=== PATIENT | male | born 1990 | race Caucasian/White ===

== ENCOUNTER 2021-09-20 21:25 | Emergency (ER) | payer OTHER, SELFPAY ==
[2021-09-20 21:30] VITALS: BP 145/88; PULSE 80; RESP 16; TEMP 36.6; O2SAT 100
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
[2021-09-20 22:22] VITALS: RESP 20
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
[2021-09-20 22:40] VITALS: BP 126/73; PULSE 77; RESP 20; O2SAT 97
== END 2021-09-20 22:41 | disposition home or self-care (01) ==
PROVIDERS: Emergency Provider Nurse Practitioner Family
DX: S69.81XA Other specified injuries of right wrist, hand and finger(s), initial encounter (principal); W20.8XXA Other cause of strike by thrown, projected or falling object, initial encounter
CPT/HCPCS: 99283; 73130; 99282

== ENCOUNTER 2021-11-28 14:42 | Outpatient (CLI) | payer OTHER, SELFPAY ==
[2021-11-28 13:43] LABS: Abs Immature Grans 0.01 10^3/uL (0.0-0.06); Absolute Basophil Count 0.03 10^3/uL (0.0-0.2); Absolute Eosinophil Count 0.03 10^3/uL (0.0-0.7); Absolute Lymphocyte Count 2.09 10^3/uL (1.2-3.4); Absolute Monocyte Count 0.59 10^3/uL (0.1-0.8); Absolute Neutrophil Count 3.54 10^3/uL (1.2-6.7); Basophils % 0.5; Eosinophils % 0.5; HCT 43.1 % (40.0-50.0); HGB 14.9 g/dL (13.5-17.5); Immature Grans % 0.2; Lymphocytes % 33.2; MCH 29.1 pg (27.0-33.0); MCHC 34.6 % (32.0-36.0); MCV 84 fL (80-95); MPV 10.7 fL (8.0-11.0); Monocytes % 9.4; Neutrophils % 56.2; Platelet Count 248 10^3/uL (130-400); RBC 5.12 10^6/uL (4.36-5.78); RDW 11.9 % (11.8-14.1); WBC 6.29 10^3/uL (4.4-10.8)
[2021-11-28 14:06] LABS: ALT 40 U/L (16-63); AST 16 U/L (15-37); Albumin 4.2 g/dL (3.4-5.0); Alkaline Phosphatase 80 U/L (46-116); Anion Gap 10.9 mmol/L (3-11); BUN 12 mg/dL (7-18); Bilirubin, Total 0.4 mg/dL (0.2-1.0); CO2 25.1 mmol/L (21.0-32.0); CREATININE 1.1 mg/dL (0.70-1.30); Calcium 8.9 mg/dL (8.5-10.1); Chloride 106 mmol/L (98-107); Glucose 119 mg/dL (74-106); Potassium 3.6 mmol/L (3.5-5.1); Sodium 142 mmol/L (136-145); Total Protein 7.8 g/dL (6.4-8.2); Troponin I < 50 ng/L (<or=60)
== END 2021-11-28 14:43 | disposition home or self-care (01) ==
LOC: LBO 14:48
PROVIDERS: Visit Provider Nurse Practitioner Family
DX: F41.9 Anxiety disorder, unspecified (principal); E07.89 Other specified disorders of thyroid
CPT/HCPCS: 36415; 80053; 84443; 84484; 85025

== ENCOUNTER → 2021-11-28 16:18 | Outpatient (CLI) | payer OTHER, SELFPAY ==
--- NOTE | 2021-11-28 13:50 | DI.RAD_ITS ---
Exam(s) XR CHEST 2V PA LATERAL EXAM: XR CHEST 2V PA LATERAL CLINICAL HISTORY: R07.89, Chest Pain - F41.9, Anxiety TECHNIQUE: 2D digital imaging was performed. COMPARISON: No exams were available for comparison FINDINGS: MEDIASTINUM: Normal. HEART: Normal. PULMONARY VASCULATURE: Normal. LUNGS: Clear. PLEURAL SPACE: No pleural effusion or pneumothorax. BONE:Unremarkable for age. IMPRESSION: No acute abnormality. DATA REPOSITORY: RADIATION DOSE DELIVERED:
== END ==
PROVIDERS: Visit Provider Nurse Practitioner Family
DX: R07.89 Other chest pain (principal); F41.8 Other specified anxiety disorders
CPT/HCPCS: 71046

== ENCOUNTER 2023-03-05 17:23 | Emergency (ER) | payer OTHER, SELFPAY ==
[2023-03-05 17:38] VITALS: BP 132/91; PULSE 94; RESP 16; TEMP 37
--- NOTE | 2023-03-05 18:15 | DI.RAD_ITS ---
Exam(s) XR FACIAL BONES COMPLETE EXAM: XR FACIAL BONES COMPLETE CLINICAL HISTORY: fall, right temporal and upper mandible TTP. TECHNIQUE: 2D digital imaging was performed. Four images were obtained. COMPARISON: No exams were available for comparison FINDINGS: BONES: No evidence of fracture. The sinuses are well pneumatized. No fluid levels are seen. SOFT TISSUES: Unremarkable. No radiopaque foreign bodies in the soft tissues. IMPRESSION: No evidence of a facial bone fracture. DATA REPOSITORY: RADIATION DOSE DELIVERED:
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
== END 2023-03-05 19:14 | disposition home or self-care (01) ==
PROVIDERS: Emergency Provider Student in an Organized Health Care Education/Training Program
DX: S09.93XA Unspecified injury of face, initial encounter (principal); V86.95XA Unspecified occupant of 3- or 4- wheeled all-terrain vehicle (ATV) injured in nontraffic accident, initial encounter
CPT/HCPCS: 99283; 70150

== ENCOUNTER → 2023-08-25 01:28 | Outpatient (CLI) | payer OTHER, SELFPAY ==
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
== END ==
DX: S22.080A Wedge compression fracture of T11-T12 vertebra, initial encounter for closed fracture (principal); X58.XXXA Exposure to other specified factors, initial encounter
CPT/HCPCS: 72072

== ENCOUNTER 2024-07-27 14:39 | Emergency (ER) | payer OTHER, SELFPAY ==
[2024-07-27 14:42] VITALS: BP 142/91; PULSE 92; RESP 16; TEMP 36.7; O2SAT 96
--- NOTE | 2024-07-27 14:45 | DI.CT_ITS ---
Exam(s) CT ORBITS WO EXAM: CT ORBITS WO CLINICAL HISTORY: ?foreign body superior left orbit. TECHNIQUE: Imaging Protocol: Axial computed tomography images with coronal and sagittal reformatted images were created and reviewed CONTRAST MATERIAL: Noncontrast COMPARISON: CR XR FACIAL BONES COMPLETE from 03/05/2023 FINDINGS: Globes: The anterior and posterior chambers are intact. Optic Nerves: Normal. Extraocular muscles: Normal. Retrobulbar fat: Normal. Orbital griffith: No definite fracture is noted. Superior ophthalmic veins: Normal. Sinuses: Mucous retention cysts are noted in the inferior maxillary sinuses. Soft Tissues: 2 millimeter radiodense foreign body is noted at the anterolateral left orbital soft ti ssues in, adjacent to the superior orbital rim no additional foreign bodies. No abnormal gas collect ion.. IMPRESSION: 2 millimeter radiodense foreign body is noted adjacent to the superolateral left orbital rim. RADIATION DOSE DELIVERED: Total DLP DATA REPOSITORY: All CT scans at this facility are submitted to the National Radiology Data Registry (NRDR) Dose Index Registry (DIR) with the [employer] (A[employer]). RADIATION OPTIMIZATION: All CT scans at this facility use at least one of these dose optimization te chniques: automated exposure control; mA and/or kV adjustment per patient size (includes targeted exa ms where dose is matched to clinical indication); or iterative reconstruction.
--- NOTE | 2024-07-27 14:56 | W.ED.GENAD ---
Discharge Plan Disposition Patient Disposition: Home Condition: Stable Discharge Details Clinical Impression: Retained foreign body Primary Care Provider: Lakeshia Easley ED Provider: Mahendra Florence Home Meds and New Rx's Prescriptions: New amoxicillin-pot clavulanate 875-125 mg tablet 1 tab PO BID Qty: 14 0RF Continued fluoxetine 60 mg Tablet 60 mg PO DAILY Discharge Instructions Additional Instructions: You do have a small foreign body in the soft tissues of the skin. Your eye itself appears intact. I discussed her case with the fundraising sale representative at [facility] and is getting placed on the follow-up list so you should receive a call from their office. If you develop any changes in your vision or severe eye pain return to the emergency department for reevaluation [facility] is open and same day from 10 AM to 3 PM tomorrow. HPI General Mode of arrival: ambulatory. Date/Time Provider Initiated Documentation: 07/27/24 14:47. Limitations to Documentation: no limitations. Information obtained by: patient. History of Present Illness 34 year old M presents to the emergency department with the chief complaint of ?foreign body superior to left eye, described as moderate, Patient started experiencing this week(s) (2) and it has been constant. No relieving factors improve symptom(s), No exacerbating factors reported . Patient notes no other symptoms.. Patient did receive the following treatments prior to arrival, none Related Data Home Medications ?Medication ?Instructions ?Recorded ?Confirmed fluoxetine 60 mg tablet 60 mg PO DAILY 03/05/23 07/27/24 amoxicillin 875 mg-potassium 1 tab PO BID #14 tabs 07/27/24 clavulanate 125 mg tablet Previous Rx's ?Medication ?Instructions ?Recorded amoxicillin 875 mg-potassium 1 tab PO BID #14 tabs 07/27/24 clavulanate 125 mg tablet Allergies Allergy/AdvReac Type Severity Reaction Status Date / Time No Known Allergies Allergy Unverified 07/27/24 14:44 General Stated Complaint: GenMedical BILL: 4 Review of Systems All systems reviewed & are unremarkable except as noted in HPI and below Constitutional Constitutional: Denies chills and Denies fever(s) Eyes Eyes: Denies blurry vision Cardiovascular Cardiovascular: Denies chest pain and Denies dyspnea Respiratory Respiratory: Denies cough and Denies dyspnea Gastrointestinal Gastrointestinal: Denies abdominal pain, Denies nausea and Denies vomiting Integumentary/Breasts Skin/Breast: Denies rash Exam Const General: no acute distress Orientation: alert HENAR Head: normal to inspection Ears: external ears normal General nose exam: external nose normal Mouth: moist mucous membranes Eyes General: appearance normal, both eyes and all related structures Alignment and Position: alignment normal Eyelids: eyelids normal Conjunctivae: conjunctivae normal Sclera: sclerae normal Cornea: corneas normal Pupils: PERRL Neck Neck: normal visual inspection Resp Effort & Inspection: normal respiratory effort and able to speak in complete sentences Cardio Rate: regular rate Skin General skin exam: no rashes or lesions noted Neuro General: patient alert and patient oriented x3 Extrem General: normal to inspection Psych Mental Status: mental status grossly normal Course Vital Signs Vital signs: Vital Signs Temperature 36.7 C 07/27/24 14:42 Pulse 92 H 07/27/24 14:42 Respiratory Rate 16 07/27/24 14:42 Blood Pressure 142/91 H 07/27/24 14:42 Pulse Oximetry 96 07/27/24 14:42 Temperature 36.7 C 07/27/24 14:42 Temperature Source Oral 07/27/24 14:42 Pulse 92 H 07/27/24 14:42 Respiratory Rate 16 07/27/24 14:42 Blood Pressure 142/91 H 07/27/24 14:42 Pulse Oximetry 96 07/27/24 14:42 Pain Level 0 07/27/24 14:42 Medical Decision Making 34-year-old male who denies any chronic medical problems comes in with concerns for a possible retained left foreign body superior to the left eye. He says 2 weeks ago he was grinding metal and a piece of metal hit his skin superior to the left orbit. He did not lose consciousness and did not seek medical attention at this time. He says he had a scab that has healed but he still feels like there is a hard piece of material underneath the area. He has no pain in the eye itself or changes in vision. He is well-appearing speaking in full sentences. He has no conjunctival injection, pupils are equal and reactive to light with full range of motion no pain in the eye. Just inferior to the left eyebrow the middle portion and superior to the upper eyelid there is a 1 cm hard piece of material that I suspect could be scar tissue or retained foreign body there is no overlying skin changes. Will obtain CT imaging to evaluate for possible retained foreign body. Vision is 20/20 and last had tetanus vaccine in November 2021 so is up-to-date Patient does have a 2 mm foreign body to superior to the left globe. There is no signs of infection and globe seems intact, given the proximity to the eye will consult ophthalmology determine if any acute or follow-up treatment is needed for this. Spoke with Dr. Oconnell fundraising sale representative at [facility] who reviewed the images and case and he will have the patient follow-up with his oculoplastics colleague in follow-up. Patient stable understands the importance of follow-up. Will also cover him with a short course of antibiotics. Differential Diagnosis Differential Diagnosis: Foreign body, scar tissue Imaging Data Radiologic Study: Attestation: I personally reviewed and interpreted this imaging study as follows: Imaging: CT Scan Radiologist's impression: FINDINGS: Globes: The anterior and posterior chambers are intact. Optic Nerves: Normal. Extraocular muscles: Normal. Retrobulbar fat: Normal. Orbital griffith: No definite fracture is noted. Superior ophthalmic veins: Normal. Sinuses: Mucous retention cysts are noted in the inferior maxillary sinuses. Soft Tissues: 2 millimeter radiodense foreign body is noted at the anterolateral left orbital soft tissues in, adjacent to the superior orbital rim no additional foreign bodies. No abnormal gas collection.. IMPRESSION: 2 millimeter radiodense foreign body is noted adjacent to the superolateral left orbital rim. Quality:SDOH Health Related Social Needs: No Data to Display PFSH All Active Problems (Updated 07/27/24 @ 17:00 by Mahendra Florence MD) Retained foreign body (Acute) Social History Smoking/Tobacco Use Status: Current every day Tobacco Type: smokeless tobacco Smoking risk assessment performed?: Yes Alcohol Intake: current Alcohol Intake frequency: a few times a week Drug use: Never Substance use type: does not use Housing: house Do you feel safe at home: Yes Do you feel safe in your relationship?: Yes PAWSS Have you Been Recently Intoxicated or Drunk Within the Last 30 days?: No Have you Ever Experienced Previous Episodes of Alcohol Withdrawal?: No Have you ever Experienced Withdrawal Seizures?: No Have you ever Experienced Delirium Tremens(DT)s?: No Have you ever undergone Alcohol Rehabilitation Treatment (i.e, inpt ot outpatient treatment programs)?: No Have you ever Experienced Blackouts?: No Have you ever Combined Alcohol with other Downers within the last 90 days?: No Have you ever Combined Alcohol with any other Substance of Abuse during the last 90 days?: No Result: 0
--- OUTSIDE RECORDS SUMMARY | 2024-07-27 15:05 | XMS_ITS | Encounter Summary ---
Author Organization [facility] Address [address] [place] [address] Care Team Providers Care Electrical Prospecting Supervisor Name Role Phone Lakeshia Easley DNP Primary Care Provider [phone] Reason for Referral * Consult (Routine/Next Available) - Authorization Not Required Specialty Diagnoses / Procedures Referred By Alfred hawthorne Referred To Contact Diagnoses BMI 33.0-33.9,adult Elevated blood pressure reading without diagnosis of hypertension Lakeshia Easley DNP [address] [place] [phone] Phone: tel: fax: [address] , [facility] [address] [place] [address] Phone: tel: fax: Referral ID Status Reason Start Date Expiration Date Visits Requested Visits Authorized [id number] Authorization Not Required Specialty Services Required 4 1 1 Question Answer Nutrition/healthcare educator/Education: Nutrition Reason for Visit * Reason Comments Anxiety Encounter Details Date Type Department Care Team ([facility] st Contact Info) Description 04/22/2024 12:00 EDT Office Visit [facility] [address] , [facility] [address] [place] [address] Lakeshia Easley DNP [address] [phone] Anxiety (Primary Dx); BMI 33.0-33.9,adult; Snoring; Elevated blood pressure reading without diagnosis of hypertension Social History Tobacco Use Types Packs/Day Years Used Date Smoking Tobacco: Former Cigarettes 0.5 2 2 018 - 2019 Smokeless Tobacco: Current Chew Tobacco Cessation:Ready to Q uit: No; Counseling Given: Yes Alcohol Use Standard Drinks/Week Comments Yes 0 (1 standard drink = 0.6 oz pur e alcohol) Overall Financial Resource Strain (CARDIA) Answe r Date Recorded How hard is it for you to pa y for the very basics like food, housing, medical care, and heating? Not hard at all 02/22/2023 PHQ-2 Answer Date Recorded PHQ-2 SUBTOTAL 0 04/22/2024 Hunger Vital Sign Answer Date Recorded Within the past 12 months, y ou worried that your food would run out before you got the money to buy more. Never true 02/23/20 23 Within the past 12 months, t he food you bought just didn't last and you didn't have money to get more. Never true 02/22/2023 PRAPARE - Transportation Answer Date Re corded In the past 12 months, has l ack of transportation kept you from medical appointments or from getting medications? No 01/26 In the past 12 months, has l ack of transportation kept you from meetings, work, or from getting things needed for daily living? No 02/22/2023 Housing Stability Vital Sign Answer Elvin e Recorded In the last 12 months, was t here a time when you were not able to pay the mortgage or rent on time? No 02/22/2023 In the last 12 months, how many places have you lived? 1 02/22/2023 In the last 12 months, was t here a time when you did not have a steady place to sleep or slept in a halfway (including now)? No 02/22/2023 Interpersonal Safety Answer Date Record ed How often does anyone, russell barahona family, hit, punch or physically hurt you? Never 02/22/2023 How often does anyone, russell barahona family, insult, scream, curse or threaten to hurt you? Never 02/22/2023 Sex and Gender Information Value Date Recorded Sex Assigned at Not on file Legal Sex Male 18:11 EST Gender Identity Male 11/27/2021 11:10 EDT Sexual Orientation Not on file documented as of this encounter Last Filed Vital Signs Vital Sign Reading Time Taken Comments Blood Pressure 131/91 04/22/2024 1138 EDT Pulse 74 04/22/2024 1138 EDT Temperature 36.7 ??C (98 ??F) 04/22/2024 1138 EDT Respiratory Rate 15 04/22/2024 1138 EDT Oxygen Saturation 98% 04/22/2024 1138 EDT Inhaled Oxygen Concentration - - Weight 110.1 kg (242 lb 12.8 oz) 04/22/2024 1138 EDT Height 180.3 cm (5' 11) 04/22/2024 1138 EDT Body Mass Index 33.86 04/22/2024 1138 EDT documented in this encounter Progress Notes * Lakeshia Easley, DNP - 04/22/2024 1200 EDT Primary Care Visit Assessment & Plan Diagnoses and all orders for this visit: Anxiety Chronic, stable. Well-controlled on current medication. -Continue Fluoxetine 60 mg daily. BMI 33.0-33.9,adult Expressed interest in weight loss and diet modification. Discussed various diet options and the importance of sustainable changes. -Schedule consult with receptionist for dietary advice. - AMB CONS/FOLLOW UP CENTRAL OFFICE INSPECTOR, HIGH VOLTAGE ELECTRICIAN AND NUTRITION Snoring Recommended proceeding with sleep study for suspected sleep apnea but patient declines. Discussed risks of untreated sleep apnea and patient expressed understanding. Elevated blood pressure reading without diagnosis of hypertension Elevated blood pressure noted during visit. Discussed potential lifestyle factors contributing to hypertension. -Purchase home blood pressure cuff and check blood pressure daily for one week. Appropriate technique reviewed. -Report readings via MyChart. -Consider medication if readings persistently above 120/80. - AMB CONS/FOLLOW UP CENTRAL OFFICE INSPECTOR, HIGH VOLTAGE ELECTRICIAN AND NUTRITION Patient education was direct. Barriers were assessed and addressed as needed. I spent a total of 25 minutes on the date of this encounter meeting with the patient and reviewing documentation/coordinating care as described in the above note. Unless otherwise noted, no procedures were performed at the time of the visit. Nayan Garcias is a 33 y.o. male presenting with Anxiety History of Present Illness The patient, with a history of anxiety managed with fluoxetine, presents for a follow-up. He reports that moods have been good with the medication. His only concern is that he continues to experience fatigue at the end of the day after work, whichmakes it difficult to find motivation to complete tasks at home. Despite this, he denies daytime sleepiness. He has tried taking his fluoxetine at night without improvement in his fatigue. He has also made dietary changes, switching from a vegetarian diet to one with more protein, which has improved his energy levels. He denies any other concerns or changes in mood. The patient is reluctant to undergo a sleep study for potential sleep apnea, despite acknowledging that he snores. He reports feeling better in the mornings and waking up earlier, around 4 or 5 AM. Wakes up feeling rested. He also expresses interest in weight loss and has questions about diet recommendations. He has tried intermittent fasting in the past with some success. Data reviewed this visit: problem list/past medical history, current medications, allergies, and recent labs Objective BP (!) 131/91 (BP Cuff Location: Right arm, BP Patient Position: Sitting, BP Cuff Sizes: Adult, regular) Pulse 74 Temp 36.7 ??C (98 ??F) (Oral) Resp 15 Ht 180.3 cm (71) Wt (!) 110.1 kg (242 lb 12.8 oz) SpO2 98% BMI 33.86 kg/m?? Physical Exam Physical Exam Constitutional: Appearance: Normal appearance. Cardiovascular: Rate and Rhythm: Normal rate and regular rhythm. Pulses: Normal pulses. Heart sounds: Normal heart sounds. Pulmonary: Effort: Pulmonary effort is normal. Breath sounds: Normal breath sounds. Neurological: General: No focal deficit present. Mental Status: He is alert and oriented to person, place, and time. Psychiatric: Mood and Affect: Mood normal. Behavior: Behavior normal. Thought Content: Thought content normal. Judgment: Judgment normal. I discussed with Dieter Miller the use of this audio recording tool to create a clinical note. Iexplained the benefits of the technology, such as time savings and a better patient experience. I explained that the recording will be confidential and converted into a written note which I will review and edit as needed before it is saved in the medical record. The patient expressed an understanding of the use of this technology for clinical documentation and agreed to allow its use for this encounter. documented in this encounter Plan of Treatment Scheduled Referrals Name Type Priority Associated Diagnoses Order Schedule AMB CONS/FOLLOW UP CENTRAL OFFICE INSPECTOR, HIGH VOLTAGE ELECTRICIAN AND NUTRITION Outpatient Referral Routine/Next Available BMI 33.0-33.9,Adult Elevated Blood Pressure Reading without Diagnosis of Hypertension Expected: 04/29/2024 (Approximate), Expires: 04/22/2025 documented as of this encounter Visit Diagnoses Diagnosis Anxiety- Primary Anxiety state, unspecified BMI 33.0-33.9,adult Body Mass Index 33.0-33.9, adult Snoring Other dyspnea and respiratory abnormality Elevated blood pressure reading without diagnosis of hypertension documented in this encounter Care Teams Electrical Prospecting Supervisor Relationship Specialty Start Date End Date Lakeshia Easley DNP [address] [place] [phone] PCP - General Family Medicine - Primary Care 12/05/21 documented as of this encounter
--- OUTSIDE RECORDS SUMMARY | 2024-07-27 15:05 | XMS_ITS | Referral Summary ---
Author Organization [facility] Address [address] [place] [address] Care Team Providers Care Food Safety Auditor Name Role Phone Lakeshia Easley Deb DNP Primary Care Provider [phone] Unavailable [phone] Allergies No known active allergies Medications FLUoxetine 60 mg tablet TAKE ONE TABLET BY MOUTH EVERY DAY 90 Tablet 3 04/03/2024 Active Active Problems Patient Care Coordination No te Formatting of this note migh t be different from the original. [facility] the following information with Georgina Wan who has the following relationship to the patient: Spouse/Partner: Scheduling/Appt/Billing/Payment Information (does not include clinical information unless specifically indicated with separate option) Medical Information including symptoms, diagnosis, medications, test results and treatment plan (does not include Mental Health unless specifically indicated with separate option) Mental Health (Behavioral,Psychiatric,Chemical Dependency) health information, including my symptoms, diagnosis, medications and treatment plan Permission remains in effect until the patient elects to revoke it. Problem Noted Date Diagnosed Date Compression fracture of T11 vertebra ([facility]) 0 11/05/2023 Overview (11/05/2023): 07/2023-following injury, mild compression fracture of T11, resolved without sequela, confirmed by x-ray done at [facility] BMI 32.0-32.9,adult 03/05/2023 Former smoker 03/05/2023 Anxiety 01/22/2022 Dependence on nicotine from chewing tobacco 11/25 Immunizations Name Administration Dates Next Due Covid-19 mRNA Vaccine (PFIZE R COVID-19) PF 0.3 ml IM (12 yrs+) 08/01/2021,12/04/2020,11/13/2020 Hepatitis B Vaccine Ped/Adol escent 3-dose IM 08/08/2000,04/15/2000,02/08/2000 Hib 08/10/1993, 3,1992,1991 Historical DTaP Vaccine, Unspecified ,12/05/1993,1992,1992,1992 Historical Influenza Vaccine , Unspecified 05/10/2021,05/14/2018 Influenza Vaccine MDCK Quad (FLUCELVAX) MDV w/preserv 0.5 ml IM (4 Yrs+) 05/10/2021 Influenza Vaccine Quad PF 0. 5 ml IM (6 mos+) 06/18/2022,05/14/2018 MMR Vaccine SQ 08/12/1997,08/10/1996 Pneumococcal Conjugate Vacci ne 20-Valent (PCV20) (PREVNAR-20) 0.5 mL IM (6 wks+) 03/05/2023 PolioVirus Vaccine OPV Oral 08/12/1997,0 12/05/1993,1992,1991 Tdap Vaccine =>7YO IM 12/05/2021,10/25/2003 Social History Tobacco Use Types Packs/Day Years Used Date Smoking Tobacco: Former Cigarettes 0.5 2 2 - 2019 Smokeless Tobacco: Current Chew Tobacco [...] place to sleep or slept in a penitentiary (including now)? No 02/22/2023 Interpersonal Safety Answer [...] 11:10 EDT Sexual Orientation Not on file Last Filed Vital Signs Vital Sign Reading [...] Body Mass Index 33.86 04/22/2024 1138 EDT Plan of Treatment Not on file Procedures Procedure Name Priority Date/Time Associated Diagnosis Comments HEPATITIS C AB W REFLEX TO HCV RNA BY PCR Routine 03/05/2023 11:15 EDT Encounter for preventive care HIV 1/2 ANTIGEN AND ANTIBODY, 4TH GENERATION Routine 03/05/2023 11:15 EDT Encounter for preventive care from Last 3 Months or Most Recently Relevant to Health Maintenance Results * HEPATITIS C AB W REFLEX TO HCV RNA BY PCR (03/05/2023 11:15 EDT) Hep C Antibody Negative Negative 03/05/2023 16:48 EDT [facility] Blood VENOUS BLOOD / Unknown Venipuncture / Unknown 03/05/2023 11:15 EDT 03/05/2023 11:15 EDT Lakeshia Easley DNP CHEMISTRY & BLOOD GAS ORDERA BLES Final Result Performing Organization Address [facility]/ZIP Co de Phone Number [facility] [address] [place] [address] * HIV 1/2 ANTIGEN AND ANTIBODY, 4TH GENERATION (03/05/2023 11:15 EDT) HIV 1 and 2 Antibody/p24 Antigen, 4th Generation Negative Negative 03/05/2023 16:39 EDT [facility] Comment:If acute HIV-1 infec tion is suspected in a high risk patient, submit plasma specimen for HIV-1 RNA quantitation test. Blood VENOUS BLOOD / Unknown Venipuncture / Unknown 03/05/2023 11:15 EDT 03/05/2023 11:15 EDT Lakeshia Easley DNP IMMUNOLOGY AND SEROLOGY ORDE RABLES Final Result Performing Organization Address City/[facility]/ZIP Co de Phone Number [facility] [address] [place] [address] from Last 3 Months or Most Recently Relevant to Health Maintenance Insurance [employer] Care Teams Food Safety Auditor Relationship Specialty Start Date End Date Lakeshia Easley DNP [address] [place] [phone] PCP - General Family Medicine - Primary Care 12/05/[address] [place] [id number] Tele Grout Sewer Line Repairer (CDE) Diabetes Education 05/03/24
--- OUTSIDE RECORDS SUMMARY | 2024-07-27 15:05 | XMS_ITS | Clinical Summary ---
Author Organization [facility] Address [address] [place] [address] Care Team Providers Care Heel Burnisher Name Role Phone Lakeshia Easley DNP Primary Care Provider + [phone] Unavailable [phone] Allergies No known active allergies Medications FLUoxetine 60 mg tablet TAKE ONE TABLET BY MOUTH EVERY DAY 90 Tablet 3 04/03/2024 Active Active Problems Patient Care Coordination No te Formatting of this note migh t be different from the original. [facility] the following information with [...] Diagnosed Date Compression fracture of T11 vertebra ([facility]) 0 11/05/2023 Overview (11/05/2023): 07/2023-following injury, mild compression fracture of T11, resolved without sequela, confirmed [facility] at [facility] BMI 32.0-32.9,adult 03/05/2023 Former smoker 03/05/2023 Anxiety [...] 08/12/1997,0 12/05/1993,1992,1991 Tdap Vaccine =>7YO IM 12/05/2021,10/25/2003 Family History Medical History Relation Comments *Other(comment) Maternal Grandfather Parkinson's *Other(comment) Maternal Uncle Parkinson's Diabetes Paternal Grandfather Relation Status Comments Maternal Grandfather Maternal Uncle Paternal Grandfather Social History Tobacco Use Types Packs/Day Years [...] place to sleep or slept in a senior living (including now)? No 02/22/2023 Interpersonal Safety Answer Date Record ed How often does anyone, incl[place] family, hit, punch or physically hurt you? Never 02/22/2023 How often does anyone, incl[place] family, insult, scream, curse or threaten to hurt you? Never 02/22/2023 Sex and Gender Information Value Date Recorded Sex Assigned at Not on file Legal Sex Male 18:11 EST Gender Identity Male 11/27/2021 11:10 EDT Sexual Orientation Not on file Obstetrics History Last Filed Vital Signs Vital Sign Reading [...] 33.86 04/22/2024 1138 EDT Plan of Treatment Health Maintenance Due Date Last Done Comments Advance Directive 2010 Social Determinants Of Health (SDOH) 02/23/2024 02/22/2023, 02/22/2023 Preventive Care Visit 03/05/2025 03/05/2023 Depression Screening 04/22/2025 04/22/2024, 03/05/20 Tetanus (Adult) Immunization 12/06/2031 12/05/2021, 10/25/2003 Hepatitis B Vaccine Completed 08/08/2000, 04/15/2000, 02/08/2000 COVID-19 Vaccine Discontinued 08/01/2021, 04/2021, 11/13/2020 Pertussis (Adult) Immunization Completed 12/05/2021, 10/25/2003 Influenza Immunization (Adult) Discontinued 06/18/2022, 05/10/2021, 05/10/2021, Additional history exists HIV Screening Completed 03/05/2023 Hepatitis C Screen Completed 03/05/2023 Pneumococcal Immunization Completed 03/05/2023 HPV Vaccines Aged Out No longer eligi ble based on patient's age to complete this topic Procedures Procedure Name Priority Date/Time Associated Diagnosis [...] C Antibody Negative Negative 03/05/2023 16:48 EDT [facility] Blood VENOUS BLOOD / Unknown Venipuncture / Unknown 03/05/2023 11:15 EDT 03/05/2023 11:15 EDT Lakeshia Easley DNP CHEMISTRY & BLOOD GAS ORDERA BLES Final Result [facility] [address] [place] [address] * HIV 1/2 ANTIGEN AND ANTIBODY, 4TH GENERATION (03/05/2023 11:15 EDT) HIV 1 and 2 Antibody/p24 Antigen, 4th Generation Negative Negative 03/05/2023 16:39 EDT [facility] Comment:If acute HIV-1 infec tion is suspected in a high risk patient, submit plasma specimen for HIV-1 RNA quantitation test. Blood VENOUS BLOOD / Unknown Venipuncture / Unknown 03/05/2023 11:15 EDT 03/05/2023 11:15 EDT Lakeshia Easley DNP IMMUNOLOGY AND SEROLOGY TISHA JACKSON Final Result [facility] [address] [place] [address] from Last 3 Months or Most Recently Relevant to Health Maintenance Insurance [facility] Care Teams Heel Burnisher Relationship Specialty Start Date End Date Lakeshia Easley DNP [address] [place] [phone] PCP - General Family Medicine - Primary Care 12/05/[address] [place] [phone] Shellfish Grower (CDE) Diabetes Education 05/03/24
--- OUTSIDE RECORDS SUMMARY | 2024-07-27 15:05 | XMS_ITS | Encounter Summary ---
Author Organization [facility] Address [address] [place] [address] Care Team Providers Care Wool Shearer Name Role Phone Lakeshia Easley DNP Primary Care Provider [phone] Reason for Visit * Reason Comments Medications Refill Encounter Details Date Type Department Care Team (Late st Contact Info) Description 03/31/2024 Refill [facility] Family Medicine [facility] [address] [facility], [address] [place] [address] Lakeshia Easley DNP [address] [facility] [address] [place] [phone] Medications Refill Social History Tobacco Use Types Packs/Day Years Used Date Smoking Tobacco: Former Cigarettes 0.5 2 2 018 - 2020 Smokeless Tobacco: Current Chew Alcohol Use Standard Drinks/Week Comments Yes 0 (1 standard drink = 0.6 oz pur e alcohol) Overall Financial Resource Strain (CARDIA) Mague gabriel Date Recorded How hard is it for you to pa y for the very basics like food, housing, medical care, and heating? Not hard at all 02/22/2023 PHQ-2 Answer Date Recorded PHQ-2 SUBTOTAL 0 02/22/2023 Hunger Vital Sign Answer Date Recorded Within [...] place to sleep or slept in a nursing home (including now)? No 02/22/2023 Interpersonal Safety Answer Date Record ed How often does anyone, incl[place] family, hit, punch or physically hurt you? Never 02/22/2023 How often does anyone, [place] family, insult, scream, curse or threaten to hurt you? Never 02/22/2023 Sex and Gender Information Value Date Recorded Sex Assigned at Not on file Legal Sex Male 18:11 EST Gender Identity Male 11/27/2021 11:10 EDT Sexual Orientation Not on file documented as of this encounter Ordered Prescriptions Prescription Sig Dispense Quantity Refills Last Filled Start Date End Date FLUoxetine 60 mg tablet TAKE ONE TABLET BY MOUTH EVERY DAY 90 Tablet 3 04/03/2024 documented in this encounter Miscellaneous Notes * Telephone Encounter - Alejandrina Slaughter RN - 04/03/2024 1017 EDT Rx(s) escribed to pharmacy. * Telephone Encounter - Girish Frazier - 04/02/2024 1626 EDT Scheduled for 04/22 * Telephone Encounter - Girish Frazier - 04/02/2024 1011 EDT LVMTCB to schedule appt. OK for same day per RG * Telephone Encounter - Alejandrina Slaughter RN - 04/02/2024 1004 EDT Pls schedule f/u mood, then. TY. * Telephone Encounter - Griish Frazier - 04/02/2024 0940 EDT RG does not have any [facility] spots before she leaves 05/28 * Telephone Encounter - Alejandrina Slaughter RN - 04/01/2024 1327 EDT Medication Refill Request Med: fluoxetine 60 mg, 1 tab QD [facility]: [facility] Last visit: 08/08/23 Next visit: none documented in this encounter Plan of Treatment Not on file documented as of this encounter Visit Diagnoses Not on filedocumented in this encounter Discontinued Medications Medication Sig Discontinue Reason Start Date End Da te FLUoxetine 60 mg tablet TAKE ONE TABLET BY MOUTH EVERY DAY 03/27/2023 04/03/2024 documented as of this encounter Care Teams Wool Shearer Relationship Specialty Start Date End Date Lakeshia Easley DNP [address] [place] [phone] PCP - General Family Medicine - Primary Care 12/05/21 documented as of this encounter
--- OUTSIDE RECORDS SUMMARY | 2024-07-27 15:06 | XMS_ITS | Encounter Summary ---
Author Organization [facility] Address [address] [place] [address] Care Team Providers Care Brick Veneer Maker Name Role Phone Lakeshia Easley DNP Primary Care Provider [phone] Reason for Visit * Reason Comments Anxiety Encounter Details Date Type Department Care Team (Late st Contact Info) Description 12/13/2021 11:00 EDT Telemedicine [facility] Family Medicine [address], [facility] [address] [place] [address] Lakeshia Easley DNP [address] [facility] [address] [place] [address] Anxiety (Primary Dx); Obsessional thoughts Social History Tobacco Use Types Packs/Day Years Used Date Smoking Tobacco: Former Cigarettes 0.5 4 Smokeless Tobacco: Current Chew Alcohol Use Standard Drinks/Week Comments Yes 0 (1 standard drink = 0.6 oz pur e alcohol) PHQ-2 Answer Date Recorded PHQ-2 SUBTOTAL 2 12/13/2021 Interpersonal Safety Answer Date Record ed Physically Hurt Never 02/27/2020 Verbally Threaten Not on file 02/27/2020 Sex and Gender Information Value Date Recorded Sex Assigned at Not on file Legal Sex Male 18:11 EST Gender Identity Male 11/27/2021 11:10 EDT Sexual Orientation Not on file documented as of this encounter Ordered Prescriptions Prescription Sig Dispense Quantity Refills Last Filled Start Date End Date FLUoxetine (PROZAC) 10 mg capsule Take 1 capsule by mouth daily. 30 capsule 3 12/13/2021 2 documented in this encounter Progress Notes * EasleyLakeshia, DNP - 12/13/2021 1100 EDT [facility] [place] Video Visit APSO Assessment & Plan: 1. Anxiety 2. Obsessional thoughts CRISTIAN-7: 13 PHQ-9: 10 ? Anxiety versus OCD. Counseled and discussed options for management. Referral to [facility] for counseling - discussed 6-8 week wait list and breif intervention model. Plan to start Fluoxetine 10 mg daily and reviewed side effects. Will f'up in 4-weeks and Raghav was encouraged to reach out sooner withany questions or concerns. - AMB CONS/FOLLOW UP TOBACCO CESSATION & BEHAVIORAL HEALTH; Future Other orders - FLUoxetine (PROZAC) 10 mg capsule; Take 1 capsule by mouth daily. Return in about 4 weeks (around 01/10/2022) for follow-up anxiety video OK . Today's visit was provided through telemedicine video conferencing: The location of the patient: [place] The location of the provider: Office Verbal consent: The concept of ???Telemedicine?? has been described to the patient.Patient has been informed of the anticipated benefits and possible risks. Patient understands the information provided regarding telemedicine, has had the opportunity to ask questions about this information, and all questions have been answered to patient???s satisfaction. Patient consents for the use of telemedicine in his/her medical care and authorizes the transmission of any relevant medical information to providers and their staff involved in patient???s medical or mental health care. Verbal consent obtained by myself or auxiliary staff: yes. Subjective: Chief Complaint(s): Anxiety HPII have reviewed current problem list and current medications. Raghav presents today to discuss anxiety. Lately I have been having some problems with anxiety. It had gone away for a while and now it's back Describes ruminative thoughts and worrying to the point that it is affecting his day-to-day function. This started about a year and a half ago when he went on vacation and couldn't remember if he had shut the burner off on the stove, kept thinking about it over and over throughout his whole vacation. He reports that when these thoughts occur, he cannot stop thinking about or worrying about them andhe goes down a rabbit hole of irrational thinking. Gives an example about mowing the lawn when it was dry and worrying about the lawn catching on fire. He tries to use distraction techniques but these are often ineffective. GF has also noticed these patterns and has told him that he has anxiety. He has certain days where he is not worried at all and feels fine but other times where he cannot stop these thoughts. He denies any thoughts of self-harm, SI or HI. Objective: Examination: There were no vitals taken for this visit. Physical Exam Constitutional: General: He is not in acute distress. Appearance: Normal appearance. He is not ill-appearing or diaphoretic. Pulmonary: Effort: Pulmonary effort is normal. Neurological: Mental Status: He is alert. Psychiatric: Attention and Perception: Attention normal. Mood and Affect: Mood is anxious. Speech: Speech normal. Behavior: Behavior normal. A total of 25 minutes was spent on this encounter on the day of this encounter. The following individuals and their role did participate in today's encounter visit: Provider: Lakeshia Easley DNP Patient documented in this encounter Plan of Treatment Not on file documented as of this encounter Visit Diagnoses Diagnosis Anxiety- Primary Anxiety state, unspecified Obsessional thoughts Obsessive-compulsive disorders documented in this encounter Care Teams Brick Veneer Maker Relationship Specialty Start Date End Date Lakeshia Easley DNP [address] [place] [phone] PCP - General Family Medicine - Primary Care 12/05/21 documented as of this encounter
--- OUTSIDE RECORDS SUMMARY | 2024-07-27 15:06 | XMS_ITS | Encounter Summary ---
Author Organization [facility] Address [address] [place] [address] Care Team Providers Care Irrigation Technician Name Role Phone Lakeshia Easley DNP Primary Care Provider [phone] Encounter Details Date Type Department Care Team ([place] [facility] st Contact Info) Description 02/18/2022 15:00 EDT Community Health Team [facility] [place] - [address] [address] [facility], [facility] Adult Social History Tobacco Use Types Packs/Day Years [...] on file documented as of this encounter Progress Notes * Rema Urena LADC - 02/18/2022 1500 EDT [facility] Progress Note Primary Care Provider: Lakeshia Easley Present Patient Verbal consent: The concept of ???Telemedicine?? has been described to the patient.? Patient has been informed of the anticipated benefits and possible risks.? Patient understands the information provided regardingtelemedicine, has had the opportunity to ask questions about this information, and all questions have been answered to patient's satisfaction. Patient consents for the use of telemedicine in his/her medical care and authorizes the transmission of any relevant medical information to providers and their staff involved in patient's medical or mental health care. This visit was conducted via telephone video. Subjective: Dieter is a 31-year old white male. He was referred for anxiety after experiencing panic attacks during the workday. Dieter said he has been feeling much better since starting fluoxetine. He said he is able to work without worrying that he might get sick. He recalled that his anxiety started when he was on a trip and couldn't remember if he'd turned off an appliance. Dieter said he feels he does not need counseling at this time. Pt said he would contact his PCP if anything changed and he wanted to reconnect w/ a counselor. Objective: Appearance: Appropriate Behavior: Appropriate Thought Process: Coherent Thought Content: Appropriate Risk: No suicidal, homicidal or violent ideations, No plan and No intent Speech: Normal Mood: Euthymic Affect: Normal Judgement: Good Insight: Appropriate Cognition: Normal Assessment: Pt demonstrates awareness and insight; seems thoughtful and reflective; open to feedback provided. Pt engaged in session. Treatment: Active listening, inventory of symptoms, psychoeducation r/t brief treatment. Plan: No additional sessions at this time. Pt may contact this com writer or his PCP if he wishes to re-engage. Duration of Session: 20 Minutes Follow up appointment: Visit date not found documented in this encounter Plan of Treatment Not on file documented as of this encounter Visit Diagnoses Not on filedocumented in this encounter Care Teams Irrigation Technician Relationship Specialty Start Date End Date Lakeshia Easley DNP [address] [place] [phone] PCP - General Family Medicine - Primary Care 12/05/21 documented as of this encounter
--- OUTSIDE RECORDS SUMMARY | 2024-07-27 15:06 | XMS_ITS | Encounter Summary ---
Author Organization [facility] Address [address] [place] [address] Care Team Providers Care Learning Support Assistant Name Role Phone Lakeshia Easley DNP Primary Care Provider [phone] Reason for Visit * Reason Comments Follow-up Encounter Details Date Type Department Care Team (Late st Contact Info) Description 06/18/2022 14:30 EST Office Visit [facility] Family Medicine [facility] [address] [facility], [address] [place] [address] Lakeshia Easley DNP [address] [facility] [address] [place] [address] Anxiety (Primary Dx); Snoring; Needs flu shot Social History Tobacco Use Types Packs/Day Years Used Date Smoking Tobacco: Former Cigarettes 0.5 4 Smokeless Tobacco: Current Chew Alcohol Use Standard Drinks/Week Comments Yes 0 (1 standard drink = 0.6 oz pur e alcohol) PHQ-2 Answer Date Recorded PHQ-2 SUBTOTAL 0 06/18/2022 Interpersonal Safety Answer Date Record ed Physically Hurt Never 02/27/2020 Verbally Threaten Not on file 02/27/2020 Sex and Gender Information Value Date Recorded Sex Assigned at Not on file Legal Sex Male 18:11 EST Gender Identity Male 11/27/2021 11:10 EDT Sexual Orientation Not on file documented as of this encounter Last Filed Vital Signs Vital Sign Reading Time Taken Comments Blood Pressure 118/68 06/18/2022 1423 EST Pulse 73 06/18/2022 1423 EST Temperature 36.8 ??C (98.3 ??F) 06/18/2022 1423 EST Respiratory Rate 14 06/18/2022 1423 EST Oxygen Saturation 97% 06/18/2022 1423 EST Inhaled Oxygen Concentration - - Weight 109 kg (240 lb 4.8 oz) 06/18/2022 1423 ES T Height 182.9 cm (6') 06/18/2022 1423 EST Body Mass Index 32.59 06/18/2022 1423 EST documented in this encounter Ordered Prescriptions Prescription Sig Dispense Quantity Refills Last Filled Start Date End Date FLUoxetine 60 mg tablet Take 1 Tablet by mouth daily. 90 Tablet 2 06/18/2022 03/27/2023 documented in this encounter Progress Notes * Lakeshia Easley, DNP - 06/18/2022 1430 EST [facility] [place] Primary Care APSO Assessment & Plan: 1. Anxiety Very well-controlled on current medication. CRISTIAN-7: 2 PHQ-9: 2 Continue Fluoxetine 60 mg daily. Follow-up for PEX. 2. Snoring Recommended sleep study to evaluate for sleep apnea, however, Raghav declines at this time. He agrees to reach out should he wish to proceed with this referral. 3. Needs flu shot - INFLUENZA VACCINE QUAD PF 0.5 ML IM (6 MOS+) Return in about 8 months (around 02/15/2023) for PEX, f'up mood . Subjective: Chief Complaint(s): Follow-up HPI I have reviewed current problem list and current medications. Raghav presents today to follow-up on anxiety. ?? At our last encounter, he was doing much better on Fluoxetine and wanted to try to increase the dose to 60 mg daily. ?? He reports that moods have been really good, overall. He has noticed times where he starts to feel anxious but it passes quickly versus in the past where he would spend hours or days ruminating over something. ?? He has also felt more motivation and has gotten a lot of construction projects done around his house. ?? He does continue to experience some fatigue. Tried switching to PM versus AM dosing but could not remember to take the medication at bedtime. ?? He does endorse snoring (reported by his GF) and does not always wake up feeling rested. He denies witnessed apneic episodes and denies excessive daytime sleepiness. Objective: Examination: Vitals: BP 118/68 (BP Cuff Location: Left arm, BP Patient Position: Sitting, BP Cuff Sizes: Adult, regular) Pulse 73 Temp 36.8 ??C (98.3 ??F) Resp 14 Ht 182.9 cm (72) Wt (!) 109 kg (240 lb 4.8 oz) SpO2 97% BMI 32.59 kg/m?? Body mass index is 32.59 kg/m??. Physical Exam Constitutional: Appearance: Normal appearance. Cardiovascular: Rate and Rhythm: Normal rate and regular rhythm. Pulmonary: Effort: Pulmonary effort is normal. Breath sounds: Normal breath sounds. Musculoskeletal: General: Normal range of motion. Neurological: General: No focal deficit present. Mental Status: He is alert and oriented to person, place, and time. Psychiatric: Mood and Affect: Mood normal. Behavior: Behavior normal. Thought Content: Thought content normal. Judgment: Judgment normal. I spent a total of 30 minutes on the date of this encounter meeting with the patient and reviewing documentation/coordinating care as described in the above note. documented in this encounter Plan of Treatment Not on file documented as of this encounter Visit Diagnoses Diagnosis Anxiety- Primary Anxiety state, unspecified Snoring Other dyspnea and respiratory abnormality Needs flu shot Need for prophylactic vaccination and inoculation against influenza documented in this encounter Discontinued Medications Medication Sig Discontinue Reason Start Date End Da te FLUoxetine 60 mg tablet TAKE ONE TABLET BY MOUTH EVERY DAY Reorder 05/20/2022 06/18/2022 documented as of this encounter Orders Immunization/Injection Count Last Ordered Date First Ordered Date INFLUENZA VACCINE QUAD PF 0. 5 ML IM (6 MOS+) 1 06/18/2022 documented in this encounter Care Teams Learning Support Assistant Relationship Specialty Start Date End Date Lakeshia Easley DNP [address] [place] [phone] PCP - General Family Medicine - Primary Care 12/05/21 documented as of this encounter
--- OUTSIDE RECORDS SUMMARY | 2024-07-27 15:06 | XMS_ITS | Encounter Summary ---
Author Organization [facility] Address [address] [place] [address] Care Team Providers Care Print Press Operator Name Role Phone Lakeshia Easley DNP Primary Care Provider Reason for Visit * Reason Comments Follow-up Anxiety Encounter Details Date Type Department Care Team (Late st Contact Info) Description 04/03/2022 17:30 EDT Telemedicine [facility] Family Medicine [address], [facility] [address] [place] [address] Lakeshia Easley DNP [address] [facility] [address] [place] [address] Anxiety (Primary Dx) Social History Tobacco Use Types Packs/Day Years [...] End Date FLUoxetine 60 mg tablet Take 60 mg by mouth daily. 30 Tablet 04/03/2022 05/20/2022 documented in this encounter Progress Notes * Lakeshia Easley DNP - 04/03/2022 1730 EDT [facility] [place] Video Visit APSO Assessment & Plan: 1. Anxiety ? Anxiety vs anxiety plus OCD. Significant improvement with Fluoxetine, though still experiencing some breakthrough sxs. Dieter would like to try to increase Fluoxetine to 60 mg, side effects reviewed. Will completed current script for 40 mg and then increase dose. F'up in 6-weeks, sooner with any concerns. Return in about 6 weeks (around 05/15/2022) for follow-up anxiety . Today's visit was provided through telemedicine video conferencing: The location of the patient: Home The location of the provider: Office Verbal [...] or auxiliary staff: yes. Subjective: Chief Complaint(s): Follow-up and Anxiety HPII have reviewed current problem list and current medications. Raghav presents today to follow up on ? Anxiety vs OCD. At our last encounter, Fluoxetine was increased to 40 mg daily. He reports that I am definitely feeling a lot better Side effect sometimes feels really tired in the afternoon. Takes medication every morning. He did have a consult with [facility] and felt like he no longer needed counseling at this time. Still has some breakthrough anxiety, intrusive thoughts and is interested in increasing Fluoxetine Objective: Examination: There were no vitals taken for this visit. Physical Exam Constitutional: General: He is not in acute distress. Appearance: Normal appearance. Pulmonary: Effort: Pulmonary effort is normal. Neurological: General: No focal deficit present. Mental Status: He is alert and oriented to person, place, and time. Psychiatric: Mood and Affect: Mood normal. Behavior: Behavior normal. A total of 22 minutes was spent on this encounter on the day of this encounter. The following individuals and their role did participate in today's encounter visit: Provider: Lakeshia Easley DNP Patient documented in this encounter Plan of Treatment Not on file documented as of this encounter Visit Diagnoses Diagnosis Anxiety- Primary Anxiety state, unspecified documented in this encounter Discontinued Medications Medication Sig Discontinue Reason Start Date End Da te FLUoxetine (PROZAC) 40 mg capsule Take 1 capsule by mouth daily. Alternate therapy 03/07/2022 04/03/2022 documented as of this encounter Care Teams Print Press Operator Relationship Specialty Start Date End Date Lakeshia Easley DNP [address] [place] [phone] PCP - General Family Medicine - Primary Care 12/05/21 documented as of this encounter
--- OUTSIDE RECORDS SUMMARY | 2024-07-27 15:06 | XMS_ITS | Encounter Summary ---
Author Organization [facility] Address [address] [place] [address] Care Team Providers Care Bakery Team Member Name Role Phone None, Provider Primary Care Provider Unavailabl e Encounter Details Date Type Department Care Team (Latest Contact Info) Description 04/25/2017 13:42 EDT - 04/25/2017 23:59 EDT Hospital Encounter [facility] [place] [address] Teresa Rodriguez NP [facility] [address] [place], [place] [phone] Discharge Disposition: Auto Discharge Social History Tobacco Use Types Packs/Day Years Used Date Smoking Tobacco: Every Day Cigarettes Smokeless Tobacco: Former Alcohol Use Standard Drinks/Week Comments No 0 (1 standard drink = 0.6 oz pur e alcohol) Sex and Gender Information Value Date Recorded Sex Assigned at Not on file Legal Sex Male 18:11 EST Gender Identity Male 11/27/2021 11:10 EDT Sexual Orientation Not on file documented as of this encounter Discharge Diagnoses Diagnosis Z01.89 Encounter for other specified special examinations-Z01.89[ICD-10-CM] documented in this encounter Discharge Disposition Disposition Code Departure Means Destination Auto Discharge Home documented in this encounter Plan of Treatment Not on file documented as of this encounter Procedures Procedure Name Priority Date/Time Associated Diagnosis Comments QUANTIFERON TB GOLD PLUS Routine 04/25/2017 11:30 EDT documented in this encounter Results * TB BY Evelia THOMAS (04/25/2017 11:30 EDT) TB Interpretation Negative Negative 017 15:[address] [facility] Comment: Reference Range: Negative Resuls were obtained with the [employer] QuantiFERON-TB Gold KAREN. TB Antigen Value 0.00 IU/mL 04/28/20 17 15:[address] [facility] Comment: This is a qualitative test. ??The TB antigen IU/mL value is required for documentation on certain government reporting forms (e.g., Form I-693), but the magnitude of this value cannot be correlated to stage or degree of infection, level of immune responsiveness, or likelihood for progression to active disease. ?? Diagnosing or excluding tuberculosis disease, and assessing the probability of LTBI, requires a combination of epidemiological, historical, medical, and diagnostic findings that should be taken into account when interpreting QuantiFERON-TB results. BLOOD SPECIMEN / Unknown 04/25/2017 11:30 EDT 04/25/2017 14:05 EDT us Teresa Rodriguez NP CHEMISTRY & BLOOD GAS ORDERABLE S Final Result [facility] [address] [place] [address] documented in this encounter Visit Diagnoses Not on filedocumented in this encounter Care Teams Bakery Team Member Relationship Specialty Start Date End Date None, Provider PCP - General 09/20/12 06/22/19 documented as of this encounter
--- OUTSIDE RECORDS SUMMARY | 2024-07-27 15:06 | XMS_ITS | Encounter Summary ---
Author Organization [facility] Address [address] [place] [address] Care Team Providers Care Paper Goods Machine Operator Name Role Phone Lakeshia Easley DNP Primary Care Provider [phone] Encounter Details Date Type Department Care Team ([facility] st Contact Info) Description 12/19/2021 11:00 EDT Community Health Team [facility] [place] [facility] - [address] [address] [facility] Adult Social History Tobacco Use Types Packs/Day [...] Progress Notes * Rema Urena LADC - 12/19/2021 1100 EDT Can you please briefly share with me your understanding of what you were referred for? What has been going on recently that lead to this request for counseling? I???ve been having some anxiety for about the last year and a half. It???s mostly situational; something will come up, and I???ll get really anxious. It started when we were on vacation. I couldn???tremember if I shut the burner off at the house. Since then, it???s been double and triple checking things. I continue to think and think and think, and go down the rabbit hole. I???m not sure but I have chest pain. It???s been going on for a month and a half. Tell me about any symptoms you are currently experiencing. _x_ Excessive worrying or fear - _ Feeling excessively sad or low _x_ Confused thinking or problems concentrating & learning - concentration has been difficult recently __ Extreme mood changes, including uncontrollable ???highs?? or feelings of euphoria or toni (i.e. sustained period of abnormally elevated or irritable mood, intense energy, racing thought) __ Prolonged or strong feelings of irritability or anger _ Avoiding friends, family, and social activities __ Difficulties understanding or relating to other people _x_ Changes in sleeping habits - when anxious, can???t fall asleep _x_ Feeling tired and low energy - drained during the day if sleep is poor due to anxiety _x_ Changes in eating habits - appetite has decreased (unsure if medication or anxiety-related) __ Changes in sex drive __ Physical ailments without obvious causes _x_ Current use / Overuse of substances like alcohol, marijuana, tobacco, or drugs or Rx medications - chews 1 can every 3 days; no alcohol use since starting medication (typically 2-3 beers every other night) __ Delusions or hallucinations __ Lack of insight Inability to carry out daily activities or handle daily problems and stress __ Intense fears of weight gain or concern with appearance x_ Have you taken or are you taking any medications to help address your symptoms? Fluoxetine; I feel a little calmer since starting it last week. Have you had thoughts in the last two weeks that you would be better off or of hurting yourself or someone else in some way? No Have you ever attempted suicide? If yes, what was the outcome (hospitalized, counseling, tx program) - No ??? Does anyone else know about this? Who are your supports? Girlfriend, Georgina ??? Are you aware of emergency resources? Pt has [facility] info ??? - [facility] Mental Health Screeners - Suicide Prevention & Self-Harm Prevention Lifeline 1-(427)-033-TALK (9656) or TEXT: 874473 - [facility] Emergency Dep, [address], [place] - [facility] Emergency Dep, [facility] Have you had any mental health or substance use counseling before? Where, when, how long? No What was helpful/not helpful about the counseling you received? Can you identify any goals or preferred outcomes for counseling? What do you want to focus your counseling on? Coping strategies Do you have a preference for in-person counseling? No preference Do you have a preference to work with a male or female counselor? No preference Do you have any accommodation needs (visually impaired, hearing impaired)? No Do you have a preference for day and time to meet? Late afternoon best but has flexibility Is there anything else that you think would be helpful for us to know? Works for [employer] Mom has anxiety; takes medication Would you be able to meet with one of our clinicians for an initial intake to further assess your needs and determine a plan for care moving forward? If we can???t schedule an intake immediately, areyou willing to be put on an 8 week (+/-) wait list? No preference on location. Good with waitlist; BT appropriate documented in this encounter Plan of Treatment Not on file documented as of this encounter Visit Diagnoses Not on filedocumented in this encounter Care Teams Paper Goods Machine Operator Relationship Specialty Start Date End Date Lakeshia Easley DNP [address] [place] [address] [phone] PCP - General Family Medicine - Primary Care 12/05/21 documented as of this encounter
--- OUTSIDE RECORDS SUMMARY | 2024-07-27 15:06 | XMS_ITS | Encounter Summary ---
Author Organization [facility] Address [address] [place] [address] Care Team Providers Care Auto Inspector Name Role Phone Unavailable Primary Care Provider Unavailabl e Encounter Details Date Type Department Care Team (Late st Contact Info) Description 06/29/2012 Results Only [facility] Laboratory Services - [facility] ([facility] [address], [place] [id number] Lm Maguire MD [address] [facility] [address] [place] [address] Social History Tobacco Use Types Packs/Day Years Used Date Smoking Tobacco: Never Assessed Sex and Gender Information Value Date Recorded Sex Assigned at Not on file Legal Sex Male 18:11 EST Gender Identity Male 11/27/2021 11:10 EDT Sexual Orientation Not on file documented as of this encounter Plan of Treatment Not on file documented as of this encounter Procedures Procedure Name Priority Date/Time Associated Diagnosis Comments GLUCOSE 6-PHOSPHATE DEHYDROGENASE ENZYME ACTIVITY, BLD Routine 06/27/2012 11:40 EST documented in this encounter Results * [id number] DEHYDROGENASE, QUANTITATIVE (06/27/2012 11:40 EST) Bagoehf-2-Nnbsisrn e Dehydrogenase Quant 9.8 8.8 - 13.4 U/g Hb [facility] Comment: Performed or Referred by: [facility] Labs: [facility], [address] [place] [address], Lab Dir: Barrera Velasquez III, MD 06/27/2012 11:4 0 EST 06/29/2012 14:12 EST us Lm Maguire MD CHEMISTRY & BLOOD GAS ORDERA BLES Final Result Performing Organization Address City/State/[facility] Co de Phone Number [facility] [address] [place] [address] documented in this encounter Visit Diagnoses Not on filedocumented in this encounter
--- OUTSIDE RECORDS SUMMARY | 2024-07-27 15:06 | XMS_ITS | Encounter Summary ---
Author Organization [facility] Address [address] [place] [address] Care Team Providers Care Assistant Unit Forester Name Role Phone Lakeshia Easley Deb CARDOSO Primary Care Provider [phone] Reason for Referral * Radiology Services (Routine/Next Available) - Specialty Report Received Specialty Diagnoses / Procedures Referred By Contac t Referred To Contact Diagnoses Acute midline thoracic back pain Procedures XR THORACIC SPINE 2 VIEWS Jose Raul Little MD Phone: tel: fax: Referral ID Status Reason Start Date Expiration Date V isits Requested Visits Authorized [id number] Specialty Report Received 08/08/2023 1 1 Reason for Visit * Reason Comments Back Pain Encounter Details Date Type Department Care Team (Late st Contact Info) Description 08/08/2023 8:00 EST Office Visit [facility] Family Medicine [address], [address] [place] [address] Jose Raul Little MD [address] [facility] [address] [place] [address] Acute midline thoracic back pain (Primary Dx) Social History Tobacco Use Types Packs/Day Years Used Date Smoking Tobacco: Former Cigarettes 0.5 2 2 018 - 2020 Smokeless Tobacco: Current Chew Tobacco Cessation:Ready to Q uit: Not Asked; Counseling Given: Not Answered Alcohol Use Standard Drinks/Week Comments Yes 0 [...] place to sleep or slept in a residential (including now)? No 02/22/2023 Interpersonal Safety Answer [...] Sign Reading Time Taken Comments Blood Pressure 124/84 08/08/2023 0758 EST Pulse 78 08/08/2023 0758 EST Temperature 36.7 ??C (98.1 ??F) 08/08/2023 0758 EST Respiratory Rate 14 08/08/2023 0758 EST Oxygen Saturation 97% 08/08/2023 075 EST Inhaled Oxygen Concentration - - Weight 109.3 kg (241 lb) 08/08/2023 0758 EST Height 180.3 cm (5' 11) 08/08/2023 0758 EST Body Mass Index 33.61 08/08/2023 0758 EST documented in this encounter Progress Notes * Jose Raul Little MD - 08/08/2023 0800 EST Primary Care Office Visit Assessment & Plan Thoracic back pain around T10 following fall with direct injury to that area 6 weeks ago. Recurrentpain since then although slowly improving which is reassuring. Also no signs of any significant neurologic or spinal cord deficit which likewise is reassuring. Pain only really elicited with movement today no obvious direct tenderness to palpation. Suspect this most likely related to bony contusion of that area or soft tissue injury-strain. Given direct blow to area we will plan on plain film to evaluate for fracture. The meantime he continue current management including activity as tolerated Plan. 1. Plain film-thoracic back -evaluate for acute process in particular issue that may require intervention although this seems unlikely given history and exam 2. Otherwise activity as tolerated, continue current conservative measures 3. Follow-up as needed Diagnoses and all orders for this visit: Acute midline thoracic back pain - XR THORACIC SPINE 2 VIEWS No follow-ups on file. Patient education was direct. Barriers were assessed and addressed as needed. I spent a total of 15 minutes on the date of this encounter meeting with the patient and reviewing documentation/coordinating care as described in the above note. Unless otherwise noted, no procedures were performed at the time of the visit. Nayan Garcias is a 33 y.o. male presenting with Back Pain HPI Reason for visit-mid back pain Patient usual state of health until about 6 weeks prior to visit. Patient fell on slippery ground when it awkwardly on mid back. Struck mid back and has had pain in that area since then. There may have been modest improvement in pain but is still present. It is aggravated with activityand movement at times. 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 Interval trauma or injury There are no radicular neurologic complaints-including no numbness or weakness. No change in bowel bladder habits no respiratory, GI or chest symptoms otherwise. No fever Otherwise in usual health He has used [id number]-dhk-[id number] analgesics as needed which may have helped modestly. He has seen a chiropractor which has helped likewise modestly for short periods of time. Review of systems otherwise unremarkable otherwise without significant medical problems or prior back pain Data reviewed this visit: problem list/past medical history, current medications, and allergies ROS - See HPI Objective BP 124/84 (BP Cuff Location: Left arm, BP Patient Position: Sitting, BP Cuff Sizes: Adult, large) Pulse 78 Temp 36.7 ??C (98.1 ??F) Resp 14 Ht 180.3 cm (71) Wt (!) 109.3 kg (241 lb) SvI271% BMI 33.61 kg/m?? Physical Exam General-alert, lucid, no distress Adequate auscultation, no crackles, no wheeze Cardiovascular-regular rate and rhythm no murmur Back-normal appearance, no edema, no bruising Area in question is about T10 region midline of back. Localizes pain. Today there is no tenderness even firm palpation Full range of motion of back without difficulty though he does note movement does elicit modest discomfort in that area Upper extremity-normal appearance, full range of motion, normal sensation and strength Lower extremity-full range of motion, normal sensation and strength documented in this encounter Plan of Treatment Scheduled Orders Name Type Priority Associated Diagnoses Orde r Schedule XR THORACIC SPINE 2 VIEWS Imaging Routine Acute Midline Thoracic Back Pain Expected: 08/10/2023 (Approximate), Expires: 02/05/2025 documented as of this encounter Visit Diagnoses Diagnosis Acute midline thoracic back pain- Primary documented in this encounter Care Teams Assistant Unit Forester Relationship Specialty Start Date End Date Lakeshia Easley, WALKER [address] [place] [address] [phone] PCP - General Family Medicine - Primary Care 12/05/21 documented as of this encounter
--- OUTSIDE RECORDS SUMMARY | 2024-07-27 15:06 | XMS_ITS | Encounter Summary ---
Author Organization [facility] Address [address] [place] [address] Care Team Providers Care Box Strapper Name Role Phone None, Provider Primary Care Provider Unavailabl e Encounter Details Date Type Department Care Team (Late st Contact Info) Description 04/25/2017 Results Only Imaging [facility] [phone] Teresa Rodriguez NP [facility] [address] [place], [place] [id number] Social History Tobacco Use Types Packs/Day Years [...] Procedure Name Priority Date/Time Associated Diagnosis Comments CHEST PA 04/25/2017 12:29 EDT documented in this encounter Results * CHEST PA (04/25/2017 12:29 EDT) Anatomical Region Laterality Modality Other 04/25/2017 12:2 9 EDT 04/25/2017 14:55 EDT Narrative 04/25/2017 14:55 EDT CHEST PA ??04/25/2017 12:29 PM Clinical History/Comments: chest xray 1 view for surveillance exposure to dust and other hazardous materials Comparison: None. Technique: Frontal view of the chest was performed using dual energy technique with bone and soft tissue reconstruction. Findings: Soft tissues: ??Normal. Bones: Normal. ?? Cardiac and mediastinal contours:Normal. Lungs: Normal. ?? Pleura/diaphragms:Normal. Impression: 1. ??Normal chest x-ray. Procedure Note Connor [place] MD - 04/25/2017 CHEST PA 04/25/2017 12:29 PM Clinical History/Comments: chest xray 1 view for surveillance exposure to dust and other hazardous materials Comparison: None. Technique: Frontal view of the chest was performed using dual energy technique with bone and soft tissue reconstruction. Findings: Soft tissues: Normal. Bones: Normal. Cardiac and mediastinal contours:Normal. Lungs: Normal. Pleura/diaphragms:Normal. Impression: 1. Normal chest x-ray. us Teresa Rodriguez NP IMG DIAGNOSTIC IMAGING ORDERABL ES Final Result documented in this encounter Visit Diagnoses Not on filedocumented in this encounter Care Teams Box Strapper Relationship Specialty Start Date End Date None, Provider PCP - General 09/20/12 06/22/19 documented as of this encounter
--- OUTSIDE RECORDS SUMMARY | 2024-07-27 15:06 | XMS_ITS | Encounter Summary ---
Author Organization [facility] Address [address] [place] [address] Care Team Providers Care Time Broker Name Role Phone Lakeshia Easley Deb CARDOSO Primary Care Provider [phone] Reason for Visit * Reason Onset Date Comments Follow-up 11/05/2023 Back x-ray Encounter Details Date Type Department Care Team (Late st Contact Info) Description 11/05/2023 Telephone [facility] Family Medicine [address] [place] [address] Jose Raul Little MD [address] [place] [address] [address] [place] [address] Follow-up (Back x-ray) Social History Tobacco Use Types Packs/Day Years Used Date Smoking Tobacco: Former Cigarettes 0.5 2 2 018 - 2020 Smokeless Tobacco: Current Chew Alcohol Use Standard Drinks/Week Comments Yes 0 (1 standard drink = 0.6 oz pur e alcohol) Overall Financial Resource Strain (CARDIA) Pipee r Date Recorded How hard is it [...] on file documented as of this encounter Miscellaneous Notes * Telephone Encounter - Jose Raul Little MD - 11/05/2023 194 EDT Telephone call with the patient today Patient has been seen about 3 months ago for mid back pain after a fall several weeks prior to thatvisit. There was concern over injury to mid back. He did have a plain film ordered. He was in the dental area prefer to have this done at [facility] X-ray not performed till about 2 weeks after that visit on 08/25/2023. We are just now receiving scanned results through our fax system. This arrived yesterday. This did show a mild compression fracture at T11 which was in area of concern which would be consistent with presentation. However no significant other abnormality noted. This was reviewed with the patient. This is felt to be self-limiting and in fact symptoms have resolved he is back to routine activity. Patient had not heard of the results previously. Plan. Fall several months ago with mild compression fracture to T11 accounting for persistent symptoms atthe time of exam 3 months ago. However as expected this has resolved and findings were self-limiting without sequela I. Plan. 1. Follow-up as needed, activity as tolerated documented in this encounter Plan of Treatment Not on file documented as of this encounter Visit Diagnoses Not on filedocumented in this encounter Care Teams Time Broker Relationship Specialty Start Date End Date Lakeshia Easley, WALKER [address] [place] [address] [phone] PCP - General Family Medicine - Primary Care 12/05/21 documented as of this encounter
--- OUTSIDE RECORDS SUMMARY | 2024-07-27 15:06 | XMS_ITS | Encounter Summary ---
Author Organization [facility] Address [address] [place] [address] Care Team Providers Care Neuroscience Director Na Name Role Phone Lakeshia Easley Deb [facility] Primary Care Provider [phone] Reason for Referral * (Routine/Next Available) - Receiving Office to Obtain Authorization Specialty Diagnoses / Procedures Referred By Contac t Referred To Contact Procedures XR OUTSIDE IMAGES THORACIC SPINE Imaging, External Referral ID Status Reason Start Date Expiration Date Visits Requested Visits Authorized [id number] Receiving Office to Obtain Authorization 08/26/2023 1 1 Reason for Visit * (Routine/Next Available) - Receiving Office to Obtain Authorization Specialty Diagnoses / Procedures Referred By Contac t Referred To Contact Procedures XR OUTSIDE IMAGES THORACIC SPINE Imaging, External Referral ID Status Reason Start Date Expiration Date Visits Requested Visits Authorized [id number] Receiving Office to Obtain Authorization 08/26/2023 1 1 Encounter Details Date Type Department Care Team (Latest Contact Info) Description 08/25/2023 - 08/25/2023 23:59 EST Hospital Encounter [facility] Secondary [place] Discharge Disposition: Home or Self Care Social History Tobacco Use Types Packs/Day Years Used Date Smoking Tobacco: Former Cigarettes 0.5 2 2 018 - 2019 Smokeless Tobacco: Current Chew Alcohol Use Standard [...] place to sleep or slept in a fdc (including now)? No 02/22/2023 Interpersonal Safety Answer Date Record ed How often does anyone, [place], hit, punch or physically hurt you? Never 02/22/2023 How often does anyone, [place] family, insult, scream, curse or threaten to hurt you? Never 02/22/2023 Sex and Gender Information Value Date Recorded Sex Assigned at Not on file Legal Sex Male 18:11 EST Gender Identity Male 11/27/2021 11:10 EDT Sexual Orientation Not on file documented as of this encounter Medications at Time of Discharge FLUoxetine 60 mg tablet TAKE ONE TABLET BY MOUTH EVERY DAY 90 Tablet 3 03/27/2023 04/03/2024 documented as of this encounter Discharge Disposition Disposition Code Departure Means Destination Home or Self Care documented in this encounter Plan of Treatment Pending Results Name Type Priority Associated Diagnoses Date /Time XR OUTSIDE IMAGES THORACIC SPINE Imaging Routine 08/26/2023 10:30 EST Scheduled Orders Name Type Priority Associated Diagnoses Orde r Schedule XR OUTSIDE IMAGES THORACIC SPINE Imaging Routine [address] arting 08/26/2023 until 08/26/2023 documented as of this encounter Visit Diagnoses Not on filedocumented in this encounter Care Teams Neuroscience Director Na Relationship Specialty Start Date End Date Lakeshia Easley, WALKER [address] [place] [address] [phone] PCP - General Family Medicine - Primary Care 12/05/21 documented as of this encounter
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
--- OUTSIDE RECORDS SUMMARY | 2024-07-27 15:06 | XMS_ITS | Encounter Summary ---
Author Organization [facility] Address [address] [place] [address] Care Team Providers Care Overhead Crane Operator Name Role Phone Lakeshia Easley DNP Primary Care Provider [phone] Reason for Visit * Reason Comments Medications Refill Encounter Details Date Type Department Care Team (Late st Contact Info) Description 03/24/2023 Refill [facility] Family Medicine [facility] [address] [facility], [address] [place] [address] Lakeshia Easley DNP [address] [facility] [address] [place] [address] Medications Refill Social History Tobacco Use Types Packs/Day Years Used Date Smoking Tobacco: Former Cigarettes 0.5 4 Smokeless Tobacco: Current Chew Alcohol Use Standard Drinks/Week Comments Yes 0 (1 standard drink = 0.6 oz pur e alcohol) Overall Financial Resource Strain (CARDIA) Mague r Date Recorded How hard is it [...] place to sleep or slept in a detention (including now)? No 02/22/2023 Interpersonal Safety Answer [...] DAY 90 Tablet 3 03/27/2023 04/03/2024 documented in this encounter Miscellaneous Notes * Telephone Encounter - Anusha Nice MA - 03/27/2023 0912 EDT Medication Refill Request Medication and dose: Fluoxetine 60 mg Verified: Yes Pharmacy verified: Yes Last visit: 03/05/2023 Next visit: No appt scheduled. RG-Pended as last rx. documented in this encounter Plan of Treatment Not on file documented as of this encounter Visit Diagnoses Not on filedocumented in this encounter Discontinued Medications Medication Sig Discontinue Reason Start Date End Da te FLUoxetine 60 mg tablet Take 1 Tablet by mouth daily. 06/18/2022 03/27/2023 documented as of this encounter Care Teams Overhead Crane Operator Relationship Specialty Start Date End Date Lakeshia Easley, WALKER [address] [place] [phone] PCP - General Family Medicine - Primary Care 12/05/21 documented as of this encounter
--- OUTSIDE RECORDS SUMMARY | 2024-07-27 15:06 | XMS_ITS | Encounter Summary ---
Author Organization [facility] Address [address] [place] [address] Care Team Providers Care Threshing Department Supervisor Name Role Phone None, Provider Primary Care Provider Unavailabl e Reason for Visit * Reason Comments Pharyngitis Encounter Details Date Type Department Care Team (Late st Contact Info) Description 09/20/2012 17:08 EST - 09/20/2012 19:07 EST Hospital Encounter [facility] - [address] [id number] [place] [address] [place] [address] Unknown, Provider, Oral infection (Primary Dx); Sore throat Discharge Disposition: Home or Self Care Social [...] Sign Reading Time Taken Comments Blood Pressure 124/65 09/20/2012 1738 EST Pulse 64 09/20/2012 1738 EST Temperature 37.1 ??C (98.8 ??F) 09/20/2012 1738 EST Respiratory Rate 16 09/20/2012 1738 EST Oxygen Saturation - - Inhaled Oxygen Concentration - - Weight - - Height - - Body Mass Index - - documented in this encounter Discharge Instructions * Attachments The following attachments cannot be sent through Care Everywhere. * SORE THROAT: AFTER YOUR VISIT (CHADIAN) documented in this encounter Medications at Time of Discharge clindamycin (CLEOCIN) 300 mg capsule Take 1 Cap by mouth every 6 hours for 6 days. 24 Cap 0 09/20/2012 09/26/2012 documented as of this encounter Ordered Prescriptions Prescription Sig Dispense Quantity Refills Last Filled Start Date End Date clindamycin (CLEOCIN) 300 mg capsule Take 1 Cap by mouth every 6 hours for 6 days. 24 Cap 0 09/20/2012 09/26/2012 documented in this encounter Discharge Disposition Disposition Code Departure Means Destination Home or Self Care Car documented in this encounter ED Notes * Amadou Haque MD - 09/20/2012 1835 EST Images from the original note were not included. DOS: 09/20/2012 Chief Complaint Patient presents with ??? Pharyngitis The patient is a 22 y.o. male who presents today with Pharyngitis The history is provided by the patient. Pharyngitis Associated symptoms include congestion. Pertinent negatives include no cough. Patient notes that he started feeling feverish 5 days ago, though did not check his temperature. Marko 2 days ago felt what he thinks is a cut to his right lower gum, posterior to his backmost molar, in addition to a sore throat, swollen right neck gland, and a blister on his right tongue. He hastried an OTC antibiotic rinse, without much benefit. He does not have a PCP or a dentist at this time - expects to be getting health insurance on 11/04. Has not felt feverish today, but did last night. Review of Systems Constitutional: Positive for fever. HENT: Positive for congestion. Negative for rhinorrhea. Respiratory: Negative for cough. Current Facility-Administered Medications Medication Dose Route Frequency Provider Last Rate Last Dose ??? clindamycin (CLEOCIN) 150 mg cap STARTER PACK 1 Package oral Now Amadou Haque MD Current Outpatient Prescriptions Medication Sig Dispense Refill ??? clindamycin (CLEOCIN) 300 mg capsule Take 1 Cap by mouth every 6 hours for 6 days. 24 Cap 0 No Known Allergies There are no active problems to display for this patient. History reviewed. No pertinent past medical history. History Substance Use Topics ??? Smoking status: Current Everyday Smoker -- 0.5 packs/day ??? Smokeless tobacco: Former User ??? Alcohol Use: No History reviewed. No pertinent family history. BP 124/65 Pulse 64 Temp(Src) 98.8 ??F (37.1 ??C) (Temporal) Resp 16 Physical Exam Nursing note and vitals reviewed. Constitutional: He is oriented to person, place, and time. He appears well- developed and well-nourished. HENT: Head: Normocephalic and atraumatic. Right Ear: Tympanic membrane and ear canal normal. Left Ear: Tympanic membrane and ear canal normal. Mouth/Throat: Posterior oropharyngeal erythema present. Right tonsil is enlarged, as compared to left. There are two small blister-like lesions on anteriorright tongue. Area of gums posterior to right molar seems to be a bit friable, with ?purulence vs food material present Neck: Neck supple. Lymphadenopathy: He has cervical adenopathy (moderate right anterior cervical, and mild posterior cervical). Neurological: He is alert and oriented to person, place, and time. Skin: Skin is warm and dry. Consult orders: None PCP: MD Pressley PCP Results for orders placed during the hospital encounter of 09/20/12 POCT RAPID STREP SCREEN Component Value Range Rapid Strep Test, POC Negative Negative Background Clear? Yes Control Line Present Yes Rgt A + Rgt B= Yellow: Yes Culture Sent to Lab? Yes Radiology orders: None Procedures Course: A medical screening exam was performed. Patient with right-sided oral symptoms, subjective fever, and lymphadenopathy. His blister-like lesions suggest possible viral cause, however symptoms are quite unilateral. His posterior lymphadenopathy could be suggestive of mono, however too early in illness for monospot. Could consider CBC to look for atypical lymphocytes, but will hold at this time, as he does not have health insurance. Will treat with clindamycin for possible anaerobic bacterial component to his infection. Rapid strep testnegative - will send for culture, but would be covered by clindamycin in case culture positive. He will let us know if symptoms do not improve - list of local PCPs provided, and we discussed [facility] as well. Disposition: Discharged The patient's pain was managed to an adequate level weighing risk vs. benefit of further medications. [facility], the patient's pain was 6 on a zero to ten scale. Condition at departure from the [facility]: Stable Final diagnoses: Sore throat Oral infection No supervision required. [facility] 09/20/2012 18:43 * Odalis Victoria RN - 09/20/2012 1736 EST Pt presents with swollen glands,sore throat and red and swollen gums. Reports he did have a fever. Last Dental appointment in . documented in this encounter Miscellaneous Notes * Scanned Note-Null - MANAGER MALL, SCAN 2 - 09/23/2012 1051 EST documented in this encounter Plan of Treatment Not on file documented as of this encounter Procedures Procedure Name Priority Date/Time Associated Diagnosis Comments POCT RAPID STREP SCREEN STAT 09/20/2012 17:56 EST Sore throat GROUP A STREP CULTURE STAT 09/20/2012 17:41 EST Sore throat documented in this encounter Results * POCT RAPID STREP SCREEN (09/20/2012 17:56 EST) Rapid Strep Test, POC Negative Negative Background Clear? Yes Control Line Present Yes Rgt A + Rgt B= Yellow: Yes Culture Sent to Lab? Yes Specimen of unknown material (specimen) 09/20/2012 17:56 EST Cathy Cannon NP POINT OF CARE TEST ORDERAB LES Final Result * PHARYNGITIS CULTURE (09/20/2012 17:41 EST) Specimen Description Throat [facility] Specimen Description Performed at [facility], [place], [place] [facility] Result No group A beta streptococci isolated. Usual juana-pharyngeal shanika. [facility] Report Status 09/22/2012 Final [facility] Specimen of unknown material (specimen) ENTIRE THROAT / Unknown 09/20/2012 17:41 EST 09/20/2012 20:48 EST us Cathy Cannon NP MICROBIOLOGY - GENERAL ORD ERABLES Final Result [facility] [address] [place] [address] documented in this encounter Visit Diagnoses Diagnosis Oral infection- Primary Other and unspecified diseases of the oral soft tissues Sore throat Acute pharyngitis documented in this encounter Administered Medications Inactive Administered Medications - up to 3 most recent administrations Medication Order MAR Action Action Date Dose Rate Site clindamycin (CLEOCIN) 150 mg cap STARTER PACK 1 Package, oral, NOW X1, 1 dose, On 09/20/12 at 1900, Routine Given 09/20/2012 18:44 EST 1 Package documented in this encounter Active and Recently Administered Medications Times are shown in EST. Scheduled Medication Order 09/18/2012 09/19/2012 09/20/2012 clindamycin (CLEOCIN) 150 mg cap STARTER PACK (COMPLETED) 1 Package, oral, NOW X1, 1 dose, On 09/20/12 at 1900, Routine 1844 (Given - Provid er: Odalis Victoria RN) documented in this encounter Orders Medications Ordered That Ladarius ht Not Have Been Administered Count Last Ordered Date First Ordered Date clindamycin (CLEOCIN) 150 mg cap STARTER PACK 1 09/20/2012 documented in this encounter Care Teams Threshing Department Supervisor Relationship Specialty Start Date End Date None, Provider PCP - General 09/20/12 06/22/19 documented as of this encounter
--- OUTSIDE RECORDS SUMMARY | 2024-07-27 15:06 | XMS_ITS | Encounter Summary ---
Author Organization [facility] Address [address] [place] [address] Care Team Providers Care Manager Ambulatory Name Role Phone Lakeshia Easley DNP Primary Care Provider [phone] Reason for Visit * Reason Onset Date Comments Medication Problem 03/06/2022 Patient needs new script for Fluoxetine that reflects dosage increase, 40 mg per day. Encounter Details Date Type Department Care Team (Late st Contact Info) Description 03/06/2022 Telephone [facility] Family Medicine [address], [facility] [address] [place] [address] Lakeshia Easley DNP [address] [place] [address] [address] [place] [address] Medication Problem (Patient needs new script for Fluoxetine that reflects dosage increase, 40 mg per day.) Social History Tobacco Use Types Packs/Day Years [...] Filled Start Date End Date FLUoxetine (PROZAC) 40 mg capsule Take 1 capsule by mouth daily. 30 capsule 3 03/07/2022 2 documented in this encounter Miscellaneous Notes * Telephone Encounter - Christen Whitehead RN - 03/07/2022 1655 EDT From 01/22 OV with RG Plan to increase Fluoxetine to 20 mg x 2-weeks, then 40 mg daily. [facility] MEDICATION REFILL Medication: fluoxitine 40 mg Medication, dose, directions verified: 1 tab daily Pharmacy verified: [email or web address] Last office visit:01/22/22 Next office visit: 04/03/22 Med sent in * Telephone Encounter - Yohana Whittaker - 03/06/2022 1318 EDT Patient needs a new script for Fluoxetine sent to pharmacy that reflects dosage increase to 40 mg per day, this was done at visit on 01/22. His insurance won't let him fill until this is done. documented in this encounter Plan of Treatment Not on file documented as of this encounter Visit Diagnoses Not on filedocumented in this encounter Discontinued Medications Medication Sig Discontinue Reason Start Date End Da te FLUoxetine (PROZAC) 20 mg capsule Take 1 capsule by mouth daily. Reorder 01/22/2022 03/07/2022 documented as of this encounter Care Teams Manager Ambulatory Relationship Specialty Start Date End Date Lakeshia Easley DNP [address] [place] [phone] PCP - General Family Medicine - Primary Care 12/05/21 documented as of this encounter
--- OUTSIDE RECORDS SUMMARY | 2024-07-27 15:06 | XMS_ITS | Encounter Summary ---
Author Organization [facility] Address [address] [place] [address] Care Team Providers Care Travel Physical Therapist Name Role Phone None, Provider Primary Care Provider Unavailabl e Encounter Details Date Type Department Care Team (Late st Contact Info) Description 01/20/2016 Historical Results Only [facility] Radiology Results [address] [place], [place] [id number] Isai Garcia, CONFIGURATION MANAGEMENT ADVISOR [address] [place] [phone] Social History Tobacco Use Types Packs/Day Years [...] Procedure Name Priority Date/Time Associated Diagnosis Comments XR LUMBAR SPINE 2-3 VIEWS 01/20/2016 13:46 EDT XR HIP LEFT 2-3 VIEWS, OPTIONAL PELVIS 01/20/2016 13:45 EDT documented in this encounter Results * XR LUMBAR SPINE 2-3 VIEWS (01/20/2016 13:46 EDT) Anatomical Region Laterality Modality Other 01/20/2016 13:4 6 EDT Narrative 01/20/2016 13:46 EDT ? EXAM: RADIOLOGY EXPRESS CARE/EXP CARE XR ??EX. D/ (1231) ? CLINICAL INFORMATION: ? BQACKPAIN, UNSPECIFIED - M54.9 ? JUMPED FROM GUIDO INTO SHALLOW WATER, LANDED ON FEET THEN BUTTOCKS, ? PAIN LUMBAR REGION AND LEFT PELVIS AND HIP ? EXAM: ? XR Lumbar Spine, 2 or 3 Views. ? CLINICAL HISTORY: ? 25 years old, male; Pain; Low back pain; Patient HX: *pt jumped ? off guido into shallow water*; Additional info: Bqackpain, ? unspecified - m54.9 ? TECHNIQUE: ? Frontal and lateral views of the lumbar spine. ? EXAM DATE/TIME: ? 01/20/2016 12:18 PM ? COMPARISON: ? No relevant prior studies available. ? FINDINGS: ? Vertebrae: ??Unremarkable. ??No acute fracture. ??Normal alignment. ? Disc spaces: ??No acute findings. ??No significant narrowing. ? IMPRESSION: ? No acute finding. ? REPORT SIGNED IN OTHER VENDOR SYSTEM 01/20/2016 ?Reported By: Hiram Cartagena MD ? CC: ? Transcribed Date/Time: 01/20/2016 (0966) ? Roll Panner: ? Printed Date/Time: 01/07/2019 (2114) ? PAGE 1 ? Signed Report ? Procedure Note Hiram Cartagena MD - 06/02/2019 EXAM: RADIOLOGY EXPRESS CARE/EXP CARE XR EX. D/ (1231) CLINICAL INFORMATION: BQACKPAIN, UNSPECIFIED - M54.9 JUMPED FROM GUIDO INTO SHALLOW WATER, LANDED ON FEET THEN BUTTOCKS, PAIN LUMBAR REGION AND LEFT PELVIS AND HIP EXAM: XR Lumbar Spine, 2 or 3 Views. CLINICAL HISTORY: 25 years old, male; Pain; Low back pain; Patient HX: *pt jumped off guido into shallow water*; Additional info: Bqackpain, unspecified - m54.9 TECHNIQUE: Frontal and lateral views of the lumbar spine. EXAM DATE/TIME: 01/20/2016 12:18 PM COMPARISON: No relevant prior studies available. FINDINGS: Vertebrae: Unremarkable. No acute fracture. Normal alignment. Disc spaces: No acute findings. No significant narrowing. IMPRESSION: No acute finding. REPORT SIGNED IN OTHER VENDOR SYSTEM 01/20/2016 Reported By: Hiram Cartagena MD CC: Transcribed Date/Time: 01/20/2016 (1674) Roll Panner: Printed Date/Time: 01/07/2019 (2114) PAGE 1 Signed Report Elizabethquique Jose CONFIGURATION MANAGEMENT ADVISOR IMG DIAGNOSTIC IMAGING ORDERA BLES Final Result * XR HIP LEFT 2-3 VIEWS, OPTIONAL PELVIS (01/20/2016 13:45 EDT) Anatomical Region Laterality Modality Lower Extremities Left Other 01/20/2016 13:4 5 EDT Narrative 01/20/2016 13:45 EDT ? EXAM: RADIOLOGY EXPRESS CARE/EXP CARE HIP EX. D/ (1231) ? CLINICAL INFORMATION: ? HIP PAIN - M25.559 ? JUMPED OFF FROM GUIDO INTO SHALLOW WATER, LANDED ON FEET THEN ? BUTTOCKS, PAIN LUMBAR REGION AND LEFT PELVIS AND HIP ? EXAM: ? XR Right Hip With Pelvis When Performed, 2 or 3 Views. ? CLINICAL HISTORY: ? 25 years old, male; Pain; Hip pain and pelvic pain; Left hip; ? Patient HX: *pt jumped off guido into shallow water*; Additional ? info: Hip pain - m25.559 ? TECHNIQUE: ? Two or three views of the right hip, with pelvis when performed. ? EXAM DATE/TIME: ? 01/20/2016 12:17 PM ? COMPARISON: ? No relevant prior studies available. ? FINDINGS: ? Bones: ??Unremarkable. ??No acute fracture. ? Joints: ??Unremarkable. ??No dislocation. ? IMPRESSION: ? No acute bony finding. ? REPORT SIGNED IN OTHER VENDOR SYSTEM 01/20/2016 ?Reported By: Hiram Cartagena MD ? CC: ? Transcribed Date/Time: 01/20/2016 (1345) ? Roll Panner: ? Printed Date/Time: 01/07/2019 (4721) ? PAGE 1 ? Signed Report ? Procedure Note Hiram Cartagena MD - 06/02/2019 EXAM: RADIOLOGY EXPRESS CARE/EXP CARE HIP EX. D/ (1231) CLINICAL INFORMATION: HIP PAIN - M25.559 JUMPED OFF FROM GUIDO INTO SHALLOW WATER, LANDED ON FEET THEN BUTTOCKS, PAIN LUMBAR REGION AND LEFT PELVIS AND HIP EXAM: XR Right Hip With Pelvis When Performed, 2 or 3 Views. CLINICAL HISTORY: 25 years old, male; Pain; Hip pain and pelvic pain; Left hip; Patient HX: *pt jumped off guido into shallow water*; Additional info: Hip pain - m25.559 TECHNIQUE: Two or three views of the right hip, with pelvis when performed. EXAM DATE/TIME: 01/20/2016 12:17 PM COMPARISON: No relevant prior studies available. FINDINGS: Bones: Unremarkable. No acute fracture. Joints: Unremarkable. No dislocation. IMPRESSION: No acute bony finding. REPORT SIGNED IN OTHER VENDOR SYSTEM 01/20/2016 Reported By: Hiram Cartagena MD CC: Transcribed Date/Time: 01/20/2016 (2818) Roll Panner: Printed Date/Time: 01/07/2019 (0634) PAGE 1 Signed Report Isai Garcia CONFIGURATION MANAGEMENT ADVISOR IMG DIAGNOSTIC IMAGING ORDERA BLES Final Result documented in this encounter Visit Diagnoses Not on filedocumented in this encounter Care Teams Travel Physical Therapist Relationship Specialty Start Date End Date None, Provider PCP - General 09/20/12 06/22/19 documented as of this encounter
--- OUTSIDE RECORDS SUMMARY | 2024-07-27 15:06 | XMS_ITS | Encounter Summary ---
Author Organization [facility] Address [address] [place] [address] Care Team Providers Care Die Fitter Name Role Phone Unavailable Primary Care Provider Unavailabl e Encounter Details Date Type Department Care Team (Latest Contact Info) Description 01/01/2000 12:46 EDT Hospital Encounter [address] [address] Aaron Lucero MD Discharge Disposition: Auto Discharge Social History Tobacco Use Types Packs/Day Years Used Date Smoking Tobacco: Never Assessed Sex and Gender Information Value Date Recorded Sex Assigned at Not on file Legal Sex Male 18:11 EST Gender Identity Male 11/27/2021 11:10 EDT Sexual Orientation Not on file documented as of this encounter Discharge Disposition Disposition Code Departure Means Destination Auto Discharge documented in this encounter Plan of Treatment Not on file documented as of this encounter Procedures Procedure Name Priority Date/Time Associated Diagnosis Comments HIP UNILATERAL 2 OR MORE VIEWS Routine 01/01/2000 15:31 EDT HIP UNILATERAL 2 OR MORE VIEWS Routine 01/01/2000 15:31 EDT documented in this encounter Results * HIP UNILATERAL 2 OR MORE VIEWS (01/01/2000 15:31 EDT) Anatomical Region Laterality Modality Other 01/01/2000 15:3 1 EDT Impressions 06/06/2009 16:29 EST IMPRESSION: 1. Left hip Zlpa-Rccyw-Wpmipfm disease with progressive interval but incomplete healing. 2. Normal right hip. The attending radiologist has reviewed the images, and concurs with the findings described above. /[facility] Narrative 06/06/2009 16:29 EST LEFT HIP LEGG CALVES PERTHES DISCEASE AND LEG LENGTH INEQUALITY R/O ??AVASCULAR NECROSIS LEFT HIP AND RIGHT HIP, 01/01/00 HISTORY: Left hip Mmnd-Bvdos-Uxkxfhc disease and leg length inequality. Rule out avascular necrosis. COMPARISON: 12/04/98. FINDINGS: A single AP view of the pelvis and an AP frog leg view of both hips again show widening of the left femoral neck and metaphysis. There has been interval healing of the bony erosions of the epiphysis and the acetabular rim. There continues to be mild joint space widening on the left when compared to the right. The right hip appears normal. Procedure Note Edwin De Anda CNM / Frank Carpenter MD - 06/06/2009 LEFT HIP LEGG CALVES PERTHES DISCEASE AND LEG LENGTH INEQUALITY R/O AVASCULAR NECROSIS LEFT HIP AND RIGHT HIP, 01/01/00 HISTORY: Left hip Ejpm-Hqcay-Ebyshxw disease and leg length inequality. Rule out avascular necrosis. COMPARISON: 12/04/98. FINDINGS: A single AP view of the pelvis and an AP frog leg view of both hips again show widening of the left femoral neck and metaphysis. There has been interval healing of the bony erosions of the epiphysis and the acetabular rim. There continues to be mild joint space widening on the left when compared to the right. The right hip appears normal. IMPRESSION IMPRESSION: 1. Left hip Hzxi-Uvjvt-Ggunfai disease with progressive interval but incomplete healing. 2. Normal right hip. The attending radiologist has reviewed the images, and concurs with the findings described above. /[facility] Aaron Lucero MD IMG DIAGNOSTIC IMAGING ORDERAB LES Final Result * HIP UNILATERAL 2 OR MORE VIEWS (01/01/2000 15:31 EDT) Anatomical Region Laterality Modality Other 01/01/2000 15:3 1 EDT Narrative 06/06/2009 16:29 EST LEFT HIP LEGG CALVES PERTHES DISCEASE AND LEG LENGTH INEQUALITY R/O ??AVASCULAR NECROSIS Procedure Note Edwin De Anda CNM / Frank Carpenter MD - 06/06/2009 LEFT HIP LEGG CALVES PERTHES DISCEASE AND LEG LENGTH INEQUALITY R/O AVASCULAR NECROSIS us Aaron Lucero MD IMG DIAGNOSTIC IMAGING ORDERAB LES Final Result documented in this encounter Visit Diagnoses Not on filedocumented in this encounter
--- OUTSIDE RECORDS SUMMARY | 2024-07-27 15:06 | XMS_ITS | Encounter Summary ---
Author Organization [facility] Address [address] [place] [address] Care Team Providers Care Automotive Sales Manager Name Role Phone Lakeshia Easley DNP Primary Care Provider [phone] Reason for Visit * Reason Comments Anxiety Encounter Details Date Type Department Care Team (Late st Contact Info) Description 01/22/2022 17:30 EDT Telemedicine [facility] Family Medicine [address], [facility] [address] [place] [address] Lakeshia Easley DNP [address] [facility] [address] [place] [phone] Anxiety (Primary Dx) Social History [...] Filled Start Date End Date FLUoxetine (PROZAC) 20 mg capsule Take 1 capsule by mouth daily. 30 capsule 3 01/22/2022 2 documented in this encounter Progress Notes * Lakeshia Easley Deb, DNP - 01/22/2022 1660 EDT [facility] [place] Visit APSO Assessment & Plan: 1. Anxiety ? Anxiety versus OCD. Improved with medication but still uncontrolled. On the wait list for counseling though [facility]. Plan to increase Fluoxetine to 20 mg x 2-weeks, then 40 mg daily. F'up in 4-weeks, encouraged to reach out sooner with any questions or concerns. Return in about 4 weeks (around 02/19/2022) for follow-up anxiety . Today's visit was [...] and current medications. Raghav presents today to f'up on anxiety. At our last encounter, he was started on Fluoxetine 10 mg daily for ? Uncontrolled anxiety versus OCD. He had an initial intake with [facility] for counseling and is currently on the wait list. Was told he would be scheduled middle of January. Today, he reports I'm doing a little better Still having anxiety but does seem like it has gotten a little better with medication. First coupleof days of Fluoxetine felt increased anxiety and GI s/e which resolved within a few days. Now is not noticing any side effects. Still has some obsessive thoughts like checking all the doors several times to make sure they're locked. Objective: Examination: There were no vitals taken for this visit. Physical Exam Constitutional: Appearance: Normal appearance. Pulmonary: Effort: Pulmonary effort [...] Start Date End Da te FLUoxetine (PROZAC) 10 mg capsule Take 1 capsule by mouth daily. Alternate therapy 12/13/2021 01/22/2022 documented as of this encounter Care Teams Automotive Sales Manager Relationship Specialty Start Date End Date Lakeshia Easley DNP [address] [place] [phone] PCP - General Family Medicine - Primary Care 12/05/21 documented as of this encounter
--- OUTSIDE RECORDS SUMMARY | 2024-07-27 15:06 | XMS_ITS | Encounter Summary ---
Author Organization [facility] Address [address] [place] [address] Care Team Providers Care Ophthalmic Medical Technician Name Role Phone Lakeshia Easley DNP Primary Care Provider Reason for Visit * Reason Comments Establish Care Encounter Details Date Type Department Care Team (Late st Contact Info) Description 12/05/2021 8:15 EDT Office Visit [facility] Family Medicine [address], [facility] [address] [place] [address] Lakeshia Easley DNP [address] [place] [facility] [address] [place] [address] Encounter to establish care (Primary Dx); Encounter for immunization; Chewing tobacco nicotine dependence without complication Social History Tobacco Use Types Packs/Day Years Used Date Smoking Tobacco: Former Cigarettes 0.5 4 Smokeless Tobacco: Current Chew Alcohol Use Standard Drinks/Week Comments Yes 0 (1 standard drink = 0.6 oz pur e alcohol) Interpersonal Safety Answer Date Record ed Physically Hurt Never 02/27/2020 Verbally Threaten Not on file 02/27/2020 Sex and Gender Information Value Date Recorded Sex Assigned at Not on file Legal Sex Male 18:11 EST Gender Identity Male 11/27/2021 11:10 EDT Sexual Orientation Not on file documented as of this encounter Last Filed Vital Signs Vital Sign Reading Time Taken Comments Blood Pressure 114/76 12/05/2021 0816 EDT Pulse 72 12/05/2021 0816 EDT Temperature - - Respiratory Rate 16 12/05/2021 0816 EDT Oxygen Saturation 99% 12/05/202116 EDT Inhaled Oxygen Concentration - - Weight 106.7 kg (235 lb 4.8 oz) 12/05/2021815 EDT Height 182.9 cm (6') 12/05/2021 0816 EDT Body Mass Index 31.91 12/05/202116 EDT documented in this encounter Progress Notes * Lakeshia Easley, DNP - 12/05/202115 EDT [facility] Primary Care APSO Assessment & Plan: 1. Encounter to establish care Raghav presents today to establish care. He is in good health, overall. He was recently seen at Urgent Care in [facility] where he had blood work done so declines labs today. He agrees to try to send a copy of lab results to this office. He will return for a routine physical exam in 1-year and was encouraged to reach out to the office in the interim with any questions or concerns. 2. Encounter for immunization - TDAP VACCINE =>7YO IM 3. Chewing tobacco nicotine dependence without complication Counseled. Discussed options to support cessation. Not ready to quit at this time, will reach out for support if needed. Subjective: Chief Complaint(s): Establish Care HPI: HPI I have reviewed patient's medication list, past medical history, social history, and family history and updated as appropriate on 12/05/2021. Patient's problem list: does not have any pertinent problems on file. Raghav presents today to establish care. Former PCP Dr. Finney, has not been seen since 2018. He reports that he has been feeling good, overall. He was recently seen at Urgent Care in [facility] for chest pain - work-up was normal and cardiac etiology was not suspected. He reports that he also had blood work done that was normal. The chest pain resolved and he has not experienced any sxssince. 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 Lives with his girlfriend. Has 4 dogs. Tobacco - chews 1 can every three days ETOH - 2-3 beers every other night Just bought a house, has been doing a lot of projects in the yard. Diet is okay. No past medical history on file. No past surgical history on file. Family History Problem Relation Age of Onset ??? *Other(comment) Maternal Uncle Parkinson's ??? *Other(comment) Maternal Grandfather Parkinson's ??? Diabetes Paternal Grandfather Social History Occupational History ??? Not on file Tobacco Use ??? Smoking status: Former Smoker Packs/day: 0.50 Years: 4.00 Pack years: 2.00 Types: Cigarettes ??? Smokeless tobacco: Current User Types: Chew Vaping Use ??? Vaping Use: Never used Substance and Sexual Activity ??? Alcohol use: Yes ??? Drug use: No ??? Sexual activity: Yes Partners: Female control/protection: OCP No current outpatient medications on file. ROS: Review of Systems Constitutional: Negative. Respiratory: Negative. Cardiovascular: Negative. Gastrointestinal: Negative. Genitourinary: Negative. Musculoskeletal: Negative. Neurological: Negative. Psychiatric/Behavioral: Negative. Objective: Examination: Vitals: BP 114/76 (BP Cuff Location: Left arm, BP Patient Position: Sitting, BP Cuff Sizes: Adult, large) Pulse 72 Resp 16 Ht 182.9 cm (72) Wt (!) 106.7 kg (235 lb 4.8 oz) SpO2 99% BMI 31.91 kg/m?? Body mass index is 31.91 kg/m??. Physical Exam Vitals reviewed. Constitutional: Appearance: Normal appearance. HENT: Head: Normocephalic and atraumatic. Cardiovascular: Rate and Rhythm: Normal rate and regular rhythm. Pulses: Normal pulses. Heart sounds: Normal heart sounds. Pulmonary: Effort: Pulmonary effort is normal. Breath sounds: Normal breath sounds. Musculoskeletal: Cervical back: Normal range of motion and neck supple. Skin: General: Skin is warm. Neurological: General: No focal deficit present. Mental Status: He is alert and oriented to person, place, and time. Psychiatric: Mood and Affect: Mood normal. Behavior: Behavior normal. Thought Content: Thought content normal. Judgment: Judgment normal. I spent a total of 30 minutes on the date of this encounter meeting with the patient and reviewing documentation/coordinating care as described in the above note. * Christen Whitehead RN - 12/05/2021 0815 EDT Verified immunization with Sanchez Hinton RN Immunizations updated from ID immunization registry documented in this encounter Plan of Treatment Not on file documented as of this encounter Visit Diagnoses Diagnosis Encounter to establish care- Primary Other reasons for seeking consultation Encounter for immunization Need for other specified prophylactic vaccination against single bacterial disease Chewing tobacco nicotine dependence without complication Tobacco use disorder documented in this encounter Orders Immunization/Injection Count Last Ordered Date First Ordered Date TDAP VACCINE =>7YO IM 1 12/05/2021 documented in this encounter Care Teams Ophthalmic Medical Technician Relationship Specialty Start Date End Date Lakeshia Easley, WALKER [address] [place] [phone] PCP - General Family Medicine - Primary Care 12/05/21 documented as of this encounter
--- OUTSIDE RECORDS SUMMARY | 2024-07-27 15:06 | XMS_ITS | Encounter Summary ---
Author Organization [facility] Address [address] [place] [address] Care Team Providers Care Power Plant Inspector Name Role Phone Lakeshia Easley DNP Primary Care Provider [phone] Reason for Visit * Reason Onset Date Comments Medications Refill Follow-up 05/21/2022 Encounter Details Date Type Department Care Team (Late st Contact Info) Description 05/20/2022 Refill [facility] Family Medicine [address], [facility] [address] [place] [address] Lakeshia Easley DNP [address] [facility] [address] [place] [phone] Medications Refill; Follow-up Social History Tobacco Use Types Packs/Day Years [...] TABLET BY MOUTH EVERY DAY 90 Tablet 05/20/2022 06/18/2022 documented in this encounter Miscellaneous Notes * Telephone Encounter - Yohana Whittaker - 05/22/2022 1649 [address]T Apt booked with pt * Telephone Encounter - Yohana Whittaker - 05/21/2022 1027 EDT LMTCB for follow up OV with RG. She is booking out to 06/18. When patient calls please schedule f/uAnxiety. * Telephone Encounter - Matilde Hinton RN - 05/21/2022 0745 EDT Please schedule * Telephone Encounter - Choco Denis MD - 05/20/2022 1722 EDT Needs f/u with RG * Telephone Encounter - Matilde Hinton RN - 05/20/2022 1445 EDT Last ppt 04/03/22, no follow up scheduled. Tabbed x 90 days per protocol. Was supposed to have a 6 week follow up from 04/03 appt. Will route to front staff to schedule. * Telephone Encounter - Sarah Mijares - 05/20/2022 1420 EDT Pt called, he is out of fluoxetine. [facility]. documented in this encounter Plan of Treatment Not on file documented as of this encounter Visit Diagnoses Not on filedocumented in this encounter Discontinued Medications Medication Sig Discontinue Reason Start Date End Da te FLUoxetine 60 mg tablet Take 60 mg by mouth daily. 04/03/2022 05/20/2022 documented as of this encounter Care Teams Power Plant Inspector Relationship Specialty Start Date End Date Lakeshia Easley, WALKER [address] [place] [phone] PCP - General Family Medicine - Primary Care 12/05/21 documented as of this encounter
--- OUTSIDE RECORDS SUMMARY | 2024-07-27 15:06 | XMS_ITS | Encounter Summary ---
Author Organization [facility] Address [address] [place] [address] Care Team Providers Care Brazing Furnace Feeder Name Role Phone Lakeshia Easley DNP Primary Care Provider [phone] Reason for Visit * Reason Onset Date Comments Results 03/06/2023 Encounter Details Date Type Department Care Team (Late st Contact Info) Description 03/06/2023 Telephone [facility] Family Medicine [address], [facility] [address] [place] [address] Lakeshia Easley DNP [address] [facility] [address] [place] [address] Results Social History Tobacco Use Types Packs/Day Years [...] place to sleep or slept in a correction (including now)? No 02/22/2023 Interpersonal Safety Answer Date Record ed How often does anyone, inclorestes barahona family, hit, punch or physically hurt [...] encounter Miscellaneous Notes * Telephone Encounter - Debbie Rodriguez RN - 03/06/2023 1029 EDT Called and explained to patient. He will have fasting labs done after 12 hours of being NPO * Telephone Encounter - Lakeshia Easley DNP - 03/06/2023 1015 EDT Please call Dieter - Labs show normal kidney function, liver function, glucose, and electrolytes Diabetes screening was normal Screenings for Hep C/ HIV both negative Cholesterol, including LDL or bad cholesterol quite elevated - would recommend repeating lab fasting, order placed, pls provide instructions for outpatient blood draw documented in this encounter Plan of Treatment Not on file documented as of this encounter Visit Diagnoses Diagnosis Mixed hyperlipidemia- Primary documented in this encounter Care Teams Brazing Furnace Feeder Relationship Specialty Start Date End Date Lakeshia Easley, WALKER [address] [place] [phone] PCP - General Family Medicine - Primary Care 12/05/21 documented as of this encounter
--- OUTSIDE RECORDS SUMMARY | 2024-07-27 15:06 | XMS_ITS | Encounter Summary ---
Author Organization [facility] Address [address] [place] [address] Care Team Providers Care Clinical Applications Manager Name Role Phone Unavailable Primary Care Provider Unavailabl e Encounter Details Date Type Department Care Team (Latest Contact Info) Description 01/28/2006 13:08 EDT Hospital Encounter [facility] Emergency Department - [facility] [address] [place] [address] Emergency, Default, MD Discharge Disposition: Home or Self Care Social [...] Procedure Name Priority Date/Time Associated Diagnosis Comments DENTAL PANAREX 01/28/2006 15:35 EDT documented in this encounter Results * DENTAL PANAREX (01/28/2006 15:35 EDT) Anatomical Region Laterality Modality Other 01/28/2006 15:3 5 EDT Narrative 05/16/2009 10:23 EDT fall, face injury r/o fx DENTAL PANOREX: ??01/28/06 HISTORY: ??Fall, face injury. FINDINGS: ??A dental Panorex in this 15 year old male demonstrates no fracture of the mandible or teeth. ??There is some evidence of loosening of the teeth. IMPRESSION: ??Negative Panorex. D: ? 01/28/06 T: ? 02/03/06 Procedure Note Dyllan Yusuf MD - 05/16/2009 fall, face injury r/o fx DENTAL PANOREX: 01/28/06 HISTORY: Fall, face injury. FINDINGS: A dental Panorex in this 15 year old male demonstrates no fracture of the mandible or teeth. There is some evidence of loosening of the teeth. IMPRESSION: Negative Panorex. us Mark Branham MD IMG DIAGNOSTIC IMAGING ORDERABLE S Final Result documented in this encounter Visit Diagnoses Not on filedocumented in this encounter
--- OUTSIDE RECORDS SUMMARY | 2024-07-27 15:06 | XMS_ITS | Encounter Summary ---
Author Organization [facility] Address [address] [place] [address] Care Team Providers Care Workcell Operator Name Role Phone None, Provider Primary Care Provider Unavailabl e Encounter Details Date Type Department Care Team (Latest Contact Info) Description 01/20/2016 9:13 EDT - 01/20/2016 23:59 EDT Hospital Encounter [facility] [address] [place] [address] Unknown, Provider, MD Discharge Disposition: Home or Self Care [...] Code Departure Means Destination Home or Self Correction documented in this encounter Plan of Treatment Not on file documented as of this encounter Visit Diagnoses Not on filedocumented in this encounter Care Teams Workcell Operator Relationship Specialty Start Date End Date None, Provider PCP - General 09/20/12 06/22/19 documented as of this encounter
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
--- OUTSIDE RECORDS SUMMARY | 2024-07-27 15:06 | XMS_ITS | Encounter Summary ---
Author Organization [facility] Address [address] [place] [address] Care Team Providers Care Retail Pricing Coordinator Name Role Phone Unavailable Primary Care Provider Unavailabl e Encounter Details Date Type Department Care Team (Latest Contact Info) Description 04/28/2001 19:23 EDT Hospital Encounter [address] [address] Aaron Lucero MD Discharge Disposition: Auto Discharge [...] Procedure Name Priority Date/Time Associated Diagnosis Comments [id number] MOREVIEWS Routine 04/28/2001 15:33 EDT documented in this encounter Results * [id number] MOREVIEWS (04/28/2001 15:33 EDT) Anatomical Region Laterality Modality Other 04/28/2001 15:3 3 EDT Impressions 06/16/2009 2:58 EST IMPRESSION: Chronic bony changes of the left hip, unchanged. dw Narrative 06/16/2009 2:58 EST LEGG CALVE PERTHES, LEG LENGTH DISCREPANCY R/O PROGRESSION OF COLLAPSE PT TO HAND CARRY FILMS TO ARONSSON PELVIS AND HIPS: 04/28/01 COMPARISON: 01/01/00. FINDINGS: A single frontal view of the pelvis and hips with a lead shield in place is obtained. Again noted are the left hip abnormalities with irregularity and widening of the left proximal femoral epiphysis and metaphysis. The radiographic appearance is similar to that seen from 01/01/00. The right hip is normal. SI joints and lumbosacral spine have a normal appearance. Procedure Note Elizabeth Staples MD - 06/16/2009 LEGG CALVE PERTHES, LEG LENGTH DISCREPANCY R/O PROGRESSION OF COLLAPSE PT TO HAND CARRY FILMS TO ARONSSON PELVIS AND HIPS: 04/28/01 COMPARISON: 01/01/00. FINDINGS: A single frontal view of the pelvis and hips with a lead shield in place is obtained. Again noted are the left hip abnormalities with irregularity and widening of the left proximal femoral epiphysis and metaphysis. The radiographic appearance is similar to that seen from 01/01/00. The right hip is normal. SI joints and lumbosacral spine have a normal appearance. IMPRESSION IMPRESSION: Chronic bony changes of the left hip, unchanged. dw Aaron Lucero MD IMG DIAGNOSTIC IMAGING ORDERAB LES Final Result documented in this encounter Visit Diagnoses Not on filedocumented in this encounter
[2024-07-27 16:25] VITALS: BP 145/77; PULSE 68; RESP 16; O2SAT 98
[2024-07-27] MEDS: Amoxicillin 875/Clav. 125 TAB PO ×2 (17:08)
== END 2024-07-27 17:10 | disposition home or self-care (01) ==
PROVIDERS: Emergency Provider Emergency Medicine; PCP Nurse Practitioner Family
DX: S00.252A Superficial foreign body of left eyelid and periocular area, initial encounter (principal); Y93.H3 Activity, building and construction
CPT/HCPCS: 99284; 70480